=== PATIENT | female | born 1955 | race Caucasian/White ===

== ENCOUNTER 2020-04-07 11:24 | Outpatient (REF) | payer BC, SELFPAY ==
[2020-04-07 13:09] LABS: MANUAL DIFF FLAG NO
[2020-04-07 13:13] LABS: Basophils Percent Auto 0.5 % (0-2); Eosinophils Absolute Auto 0.4 X10*3/uL (0.0-0.4); Eosinophils Percent Auto 5.7 % (0-4); Hematocrit 43.1 % (37-47); Hemoglobin 13.6 g/dl (12.0-16.0); Imm Gran Abs Auto 0.03 X10*3/uL (0.00-0.03); Imm Gran Pct Auto 0.5 % (0.0-0.4); Lymphocytes Absolute Auto 1.6 X10*3/uL (1.2-4.9); Mean Corpuscular HGB Conc 31.6 g/dl (31.0-35.0); Mean Corpuscular Hemoglobin 28.3 pg (27.0-33.0); Mean Corpuscular Volume 89.8 fL (80-98); Mean Platelet Volume 11.4 fL (9.4-12.3); Monocytes Absolute Auto 0.6 X10*3/uL (0.1-1.2); Monocytes Percent Auto 8.9 % (2-11); Neutrophils Absolute Auto 3.9 X10*3/uL (2.0-8.3); Neutrophils Percent Auto 59.4 % (45-73); Platelet Count 252 X10*3/uL (160-400); Red Cell Distribution Width 13.7 % (11.0-16.0); White Blood Count 6.5 X10*3/uL (4.8-10.8)
[2020-04-07 13:46] LABS: Alanine Aminotransferase 35 U/L (0-31); Albumin Level 4.4 g/dL (3.5-5.0); Alkaline Phosphatase 55 U/L (39-117); Anion Gap 13 (12-20); Aspartate Amino Transferase 24 U/L (5-31); Bilirubin Total 0.3 mg/dL (0.0-1.0); Blood Urea Nitrogen 18 mg/dL (9-16); Calcium 9.4 mg/dL (8.4-10.2); Carbon Dioxide 26 mmol/L (22-29); Chloride 103 mmol/L (96-108); Cholesterol 222 mg/dL; Estimated Glomerular Filt Rate > 60; Glucose Fasting 108 mg/dL (60-99); HDL Cholesterol 64 mg/dL; LDL Cholesterol Calculated 137 mg/dl; Potassium 4.3 mmol/l (3.3-5.1); Sodium 138 mmol/L (135-145); Total Protein 6.8 g/dL (6.5-8.0); Triglycerides 106 mg/dL
[2020-04-07 13:57] LABS: Thyroid Stimulating Hormone 1.34 uIU/mL (0.32-4.0); Vitamin D 25-OH Total 12.1 ng/mL (>30)
== END 2020-04-07 11:25 | disposition home or self-care (01) ==
LOC: HO.10HDL 11:24
PROVIDERS: PCP Internal Medicine; Visit Provider Internal Medicine
DX: I10 Essential (primary) hypertension (principal); E78.00 Pure hypercholesterolemia, unspecified; R63.5 Abnormal weight gain; M19.90 Unspecified osteoarthritis, unspecified site
CPT/HCPCS: 36415; 80053; 80061; 82306; 84443; 85025

== ENCOUNTER 2020-07-29 07:11 | Outpatient (REF) | payer BC, SELFPAY ==
[2020-07-29 08:31] LABS: Cholesterol 237 mg/dL; HDL Cholesterol 56 mg/dL; LDL Cholesterol Calculated 140 mg/dl; Triglycerides 207 mg/dL
== END 2020-07-29 07:12 | disposition home or self-care (01) ==
LOC: HO.LAB 07:11
PROVIDERS: PCP Internal Medicine; Visit Provider Internal Medicine
DX: E78.00 Pure hypercholesterolemia, unspecified (principal)
CPT/HCPCS: 36415; 80061

== ENCOUNTER 2021-11-24 09:13 | Outpatient (REF) | payer BC, SELFPAY | END 2021-11-24 09:14 | disposition home or self-care (01) | LOC: HO.HOSX 09:13 | PROVIDERS: Visit Provider Orthopaedic Surgery | DX: Z13.89 Encounter for screening for other disorder (principal) ==

== ENCOUNTER 2023-05-29 07:41 | Outpatient (REF) | payer MEDICARE, SELFPAY ==
[2023-05-29 07:53] LABS: MANUAL DIFF FLAG NO
[2023-05-29 08:45] LABS: Basophils Percent Auto 0.3 % (0-2); Eosinophils Absolute Auto 0.2 X10*3/uL (0.0-0.4); Eosinophils Percent Auto 1.5 % (0-4); Hematocrit 44.9 % (37.0-47.0); Hemoglobin 14.7 g/dl (12.0-16.0); Imm Gran Abs Auto 0.07 X10*3/uL (0.00-0.03); Imm Gran Pct Auto 0.6 % (0.0-0.4); Lymphocytes Absolute Auto 2.6 X10*3/uL (1.2-4.9); Mean Corpuscular HGB Conc 32.7 g/dl (31.0-35.0); Mean Corpuscular Hemoglobin 28.2 pg (27.0-33.0); Mean Platelet Volume 11.1 fL (9.4-12.3); Monocytes Absolute Auto 1.1 X10*3/uL (0.1-1.2); Monocytes Percent Auto 9.6 % (2-11); Neutrophils Absolute Auto 7.7 x10*3/uL (2.0-8.3); Platelet Count 338 X10*3/uL (160-400); Red Blood Count 5.22 X10*6/uL (4.20-5.50); Red Cell Distribution Width 14.1 % (11.0-16.0); White Blood Count 11.6 X10*3/uL (4.8-10.8)
[2023-05-29 09:17] LABS: Alanine Aminotransferase 20 U/L (0-31); Alkaline Phosphatase 56 U/L (39-117); Anion Gap 11 (12-20); Aspartate Amino Transferase 15 U/L (5-31); Bilirubin Total 0.8 mg/dL (0.0-1.0); Blood Urea Nitrogen 18 mg/dL (9-16); Calcium 9.6 mg/dL (8.4-10.2); Carbon Dioxide 32 mmol/L (22-29); Chloride 105 mmol/L (96-108); Cholesterol 190 mg/dL (<200); Estimated Glomerular Filt Rate > 60; Glucose Fasting 101 mg/dL (60-99); HDL Cholesterol 71 mg/dL (>40); LDL Cholesterol Calculated 103 mg/dL (<100); Potassium 4.6 mmol/L (3.3-5.1); Sodium 143 mmol/L (135-145); Total Protein 6.6 g/dL (6.5-8.0); Triglycerides 81 mg/dL (<150)
== END 2023-05-29 07:42 | disposition home or self-care (01) ==
LOC: HO.LAB 07:41
PROVIDERS: PCP Internal Medicine; Visit Provider Internal Medicine
DX: I10 Essential (primary) hypertension (principal); E78.00 Pure hypercholesterolemia, unspecified; M19.90 Unspecified osteoarthritis, unspecified site
CPT/HCPCS: 36415; 80053; 80061; 85025

== ENCOUNTER 2023-07-23 10:57 | Outpatient (REF) | payer MEDICARE, SELFPAY ==
--- NOTE | ~2023-07-23 | MM_ITS ---
EXAMINATION: BONE DENSITOMETRY CLINICAL INDICATION: Menopause. COMPARISON: This is the patient's baseline examination. TECHNIQUE: Using a [employer] DXA System (software version: 13.1) manufactured by [employer], dual-energy x-ray absorptiometry was performed of the lumbar spine and left hip. The images are of good technical quality. Summary results are attached. FINDINGS: LEFT FEMUR, NECK: BMD 0.801 g/cm2, Z-score -0.8, T-score -1.7, osteopenia. LEFT FEMUR, TOTAL: BMD 0.927 g/cm2, Z-score 0.0, T-score -0.6, normal. AP SPINE L1-L4: BMD 0.992 g/cm2, Z-score -1.1, T-score -1.6, osteopenia. IDENTIFIED RISK FACTORS: Menopause, height loss, Thiazide. HISTORY OF FRACTURE: None listed. MEDICATIONS: None listed. MM/XR DEXA axial skeleton IMPRESSION: 1. DIAGNOSIS: Osteopenia based on the lowest T-score value of -1.7 in the femoral neck applying World Health Organization criteria. 2. 10-YEAR FRACTURE RISK PREDICTION, FRAX: Major osteoporotic fracture (clinical spine, forearm, hip or shoulder) 9.3%. Hip fracture 1.4%. 3. Treatment Recommendations: NOF guidelines recommend consideration for treatment in postmenopausal women and men age 50 and older presenting with the following: -A hip or vertebral (clinical or morphometric) fracture. -T-score less than or equal to -2.5 at the femoral neck or spine after appropriate evaluation to exclude secondary causes. -Low bone mass at the hip or spine and a 10-year fracture probability by FRAX of greater than or equal to 3% for hip fracture or greater than or equal to 20% for major osteoporotic fracture based on the [place] adapted WHO algorithm. 4. Other Recommendations: All treatment decisions require clinical judgment and consideration of individual patient factors, including patient preferences, comorbidities, previous drug use, risk factors not captured in the FRAX model (e.g. frailty, falls, vitamin D deficiency, increased bone turnover, interval significant decline in bone density) and possible under or overestimation of fracture risk by FRAX. Additional medical evaluation for secondary cause of low bone mineral density may be appropriate. FUTURE SCAN RECOMMENDATION: People with diagnosed cases of osteoporosis or at high risk for fracture should have regular bone mineral density tests. For patients eligible for Medicare, routine testing is allowed once every 2 years. The testing frequency can be increased to one year for patients who have rapidly progressing disease, those who are receiving or discontinuing medical therapy to restore bone mass, or have additional risk factors.
== END 2023-07-23 10:58 | disposition home or self-care (01) ==
LOC: HO.MAMMO 10:57
PROVIDERS: PCP Internal Medicine; Visit Provider Internal Medicine
DX: Z13.820 Encounter for screening for osteoporosis (principal); Z78.0 Asymptomatic menopausal state
CPT/HCPCS: 77080

== ENCOUNTER 2023-11-04 10:06 | Outpatient (REF) | payer MEDICARE, SELFPAY ==
[2023-11-04 10:42] LABS: MANUAL DIFF FLAG NO
[2023-11-04 10:47] LABS: Basophils Absolute Auto 0.1 X10*3/uL (0.0-0.2); Basophils Percent Auto 0.5 % (0-2); Eosinophils Absolute Auto 0.1 X10*3/uL (0.0-0.4); Eosinophils Percent Auto 1.3 % (0-4); Hematocrit 43.2 % (37.0-47.0); Hemoglobin 14.3 g/dl (12.0-16.0); Imm Gran Abs Auto 0.09 X10*3/uL (0.00-0.03); Imm Gran Pct Auto 0.9 % (0.0-0.4); Lymphocytes Absolute Auto 2.2 X10*3/uL (1.2-4.9); Lymphocytes Percent Auto 22.7 % (20-40); Mean Corpuscular HGB Conc 33.1 g/dl (31.0-35.0); Mean Corpuscular Hemoglobin 29.1 pg (27.0-33.0); Mean Corpuscular Volume 87.8 fL (80.0-98.0); Mean Platelet Volume 10.6 fL (9.4-12.3); Monocytes Absolute Auto 0.8 X10*3/uL (0.1-1.2); Monocytes Percent Auto 8.1 % (2-11); Neutrophils Absolute Auto 6.5 x10*3/uL (2.0-8.3); Neutrophils Percent Auto 66.5 % (45-73); Platelet Count 323 X10*3/uL (160-400); Red Blood Count 4.92 X10*6/uL (4.20-5.50); Red Cell Distribution Width 14.2 % (11.0-16.0); White Blood Count 9.8 X10*3/uL (4.8-10.8)
[2023-11-04 11:11] LABS: Anion Gap 11 (12-20); Blood Urea Nitrogen 18 mg/dL (9-16); Carbon Dioxide 31 mmol/L (22-29); Chloride 103 mmol/L (96-108); Estimated Glomerular Filt Rate > 60; Glucose Random 110 mg/dL (60-115); Potassium 4.7 mmol/L (3.3-5.1); Sodium 140 mmol/L (135-145)
== END 2023-11-04 10:07 | disposition home or self-care (01) ==
LOC: HO.10HDL 10:06
PROVIDERS: Visit Provider Internal Medicine
DX: I10 Essential (primary) hypertension (principal); E78.00 Pure hypercholesterolemia, unspecified
CPT/HCPCS: 36415; 80048; 85025

== ENCOUNTER 2024-02-18 15:07 | Outpatient (RCR) | payer MEDICARE, SELFPAY ==
--- NOTE | 2024-01-16 17:36 | MHC.PT.EP ---
[facility] [place] Office [place] Office [place] Office [address] Jonatan Stephens [address] [phone] F: [phone] F: [phone] F: [phone] F: [phone] Physical Therapy Plan of Care Date of Evaluation: 01/13/24 Date of Surgery: Diagnosis: Left lower quadrant pain, LBP, L lower buttock pain. Assessment: Pt is a 68 y/o female referred to PT for eval and treat of Left lower quadrant pain, LBP, left lower buttock pain which is resulting in decreased tolerance for sitting for duration, performing heavier HH chores, walking for long duration, as well participating in jac fitness activities secondary to increased lumbar and LE tissue tension, decreased trunk ROM, decreased hip and core strength and pain. Pt is deemed an appropriate candidate to receive skilled PT services to address their physical impairments in order to improve their functional ability. Frequency and Duration: The patient will be seen 1 x / wk x 5 wks. Short Term Goals: initiate home program. Improve baseline pain to < 5/10; initial 6-8/10. Mcc Goals: I with home program Pt will improve LEFI outcome measure by at least 9 points. Pt will walk a mile with at most a little bit of difficulty; initial quite a bit of difficulty. Pt will report able to sit > 1 hour with managed Sx. Treatment Plan: Modalities to reduce pain, spasms and effusion. Manual therapy to restore motion and function. Therapeutic exercise to improve strength and flexibility. Neuromuscular re-education for posture and balance. Therapeutic activities to return to functional activities of daily living. Electronically signed by: Valerio Ambrocio PT. Please sign and return to therapist. Thank you for your referral.
== END 2024-05-29 08:32 | disposition home or self-care (01) ==
LOC: HO.PT 15:07
PROVIDERS: PCP Internal Medicine; Visit Provider Internal Medicine
DX: R10.32 Left lower quadrant pain (principal); M54.50 Low back pain, unspecified
CPT/HCPCS: 97110; 97161

== ENCOUNTER 2024-07-30 14:32 | Outpatient (REF) | payer MEDICARE, SELFPAY ==
--- NOTE | ~2024-07-30 | XR_ITS ---
EXAMINATION: XR CHEST CLINICAL INFORMATION: J06.9 - Acute upper respiratory infection, unspecified COMPARISON: 05/22/2010 TECHNIQUE: 2 views of the chest were obtained. FINDINGS: The cardiac, hilar, and mediastinal contours are normal. Aortic mural calcification. Lungs are mildly hyperaerated bilaterally. Lingular consolidation best appreciated on the lateral projection. In the right base, there is a 1.4 cm probably calcified nodule, not present in 2011. Given density, this is likely a calcified granuloma. Lungs otherwise clear. There is no pneumothorax or pleural effusion. There is no focal osseous or soft tissue abnormality. Degenerative changes throughout the spine. XR/XR chest 2V IMPRESSION: 1. COPD. Lingular consolidation suspicious for pneumonia. 2. Nodule in the right lung base, probably calcified granuloma. CT exam recommended for confirmation. Electronically signed by: Alan Desouza MD 07/30/2024 04:09 PM EDT
[2024-07-31 11:04] LABS: Influenza A PCR NEGATIVE (Negative); Influenza B PCR NEGATIVE (Negative); Resp Syncy Virus RNA Qual PCR NEGATIVE (Negative); SARS COV2 PCR INHOUSE NEGATIVE (Negative)
== END 2024-07-30 14:33 | disposition home or self-care (01) ==
LOC: HO.HMGCX 14:32
PROVIDERS: PCP Internal Medicine; Visit Provider Nurse Practitioner Family
DX: J06.9 Acute upper respiratory infection, unspecified (principal); R05.2 Subacute cough
CPT/HCPCS: 0241U; 71046; 99212

== ENCOUNTER 2024-07-30 14:32 | Outpatient (AMB) | payer MEDICARE, SELFPAY ==
--- NOTE | 2024-07-30 14:49 | AM.OFFWIN_ITS ---
Intake Vital Signs 07/30/24 14:56 Weight 224 lb 4 oz BP 126/80 Blood Pressure Location Lt brachial Position Sitting Pulse 80 Pulse Source Pulse Oximeter Temp 97.6 F Temp Source Oral Pulse Oximetry (%) 97 Oxygen Delivery Method Room Air Intake Visit Reasons: EP-cough, chest congestion, tiredness, body ache Intake Note: Patient here for headache,cough, fatigue and congestion that has been present for over 2 weeks. Patient Tobacco Use Status: Never used Tobacco Contracts Advisor Required: No Allergies No Known Allergies [No Known Allergies*] Allergy (Unverified 07/30/24 14:58) HPI HPI Comments History of Present Illness Details 68 y/o Female patient who presents to [facility] walk in clinic with c/o headache,cough, wheezing, fatigue and congestion that has been present for over 2 weeks. [facility] Medical History (Updated 07/30/24 @ 16:41 by Sisi Owen NP) Pneumonia Cough Acute respiratory disease Social History Patient Tobacco Use Status: Never used Tobacco Review of Systems Const All systems reviewed & are unremarkable except as noted in HPI and below Physical Exam Vital Signs: Last Vital Signs Temp 97.6 F 07/30/24 14:56 Pulse 80 07/30/24 14:56 BP 126/80 07/30/24 14:56 Pulse Ox 97 07/30/24 14:56 Oxygen Delivery Method Room Air 07/30/24 14:56 Const General: no acute distress Nutritional Appearance: obese morbidly obese Orientation/consciousness: patient oriented x3 HEENT Head: Yes normocephalic Ears: external ears normal and TM abnormal with fluid behind the TM bilateral General nose exam: Normal external nose present Face and sinus: Yes sinuses nontender Mouth: moist mucous membranes Resp Effort & Inspection: normal respiratory effort, able to speak in complete sentences and Actively coughing Auscultation: no crackles, no rales, rhonchi upper bilaterally and wheezes inspiratory wheezes and scattered wheezes Cardio Rhythm: regular rhythm Heart sounds: S1 normal heart sound present and S2 normal heart sound present Neuro General: patient oriented x3 Psych Speech and movement: Normal speech and movement present Assessment & Plan Assessment & Plan (1) Acute respiratory disease: Code(s): J06.9 - Acute upper respiratory infection, unspecified Plan: Ordered SARs. Ordered Doxy for 10 days. Ordered Chest Xray Ordered Prednisone (2) Cough: Code(s): R05.9 - Cough, unspecified Qualifiers: Cough type: subacute Qualified Code(s): R05.2 - Subacute cough Plan: Ordered SARs. Ordered Doxy for 10 days. Ordered Chest Xray Ordered Prednisone Orders: Orders XR chest 2V Today J06.9 - Acute upper respiratory infection, unspecified SARS-CoV2/FLU/RSV Today J06.9 - Acute upper respiratory infection, unspecified Medications: New doxycycline hyclate 100 mg PO BID 20 caps 0RF 10 days R05.9 - Cough, unspecified prednisone 50 mg PO DAILY 5 tabs 0RF 5 days J06.9 - Acute upper respiratory infection, unspecified, R05.9 - Cough, unspecified benzonatate 200 mg (2 x 100 mg) PO BID 60 caps 0RF J06.9 - Acute upper respiratory infection, unspecified, R05.9 - Cough, unspecified Coding Level of Care Code Est Pt Level 4 (80347) Diagnoses Acute respiratory disease J06.9 Subacute cough R05.2 Cough type: subacute Time Spent (min) 20
[2024-07-30 14:56] VITALS: BP 126/80; PULSE 80; TEMP 36.4; O2SAT 97
== END 2024-07-30 15:44 | disposition home or self-care (01) ==
PROVIDERS: PCP Internal Medicine; Visit Provider Nurse Practitioner Family
DX: J06.9 Acute upper respiratory infection, unspecified (principal); R05.2 Subacute cough

== ENCOUNTER 2024-07-30 15:23 | Outpatient (REF) | payer MEDICARE, SELFPAY | END 2024-07-30 15:24 | disposition home or self-care (01) | LOC: HO.LAB 15:23 | PROVIDERS: Visit Provider Nurse Practitioner Family | DX: Z13.89 Encounter for screening for other disorder (principal) ==

== ENCOUNTER → 2024-07-30 15:26 | Outpatient (BNV) | payer MEDICARE, SELFPAY | PROVIDERS: PCP Internal Medicine; Visit Provider Radiology Diagnostic Radiology | DX: J44.9 Chronic obstructive pulmonary disease, unspecified (principal); R91.1 Solitary pulmonary nodule | CPT/HCPCS: 71046 ==

== ENCOUNTER 2024-08-06 10:08 | Outpatient (AMB) | payer MEDICARE, SELFPAY ==
--- NOTE | 2024-08-06 10:14 | A.OFFPC_ITS ---
Vital Signs 08/06/24 10:16 Height 5 ft 2.4 in Weight 224 lb BMI 40.4 BP 134/80 Respiration 16 Pulse 82 Pulse Source Pulse Oximeter Temp 97.6 F Temp Source Temporal Artery Scan Pulse Oximetry (%) 99 Oxygen Delivery Method Room Air Intake Visit Reasons: Ed F/U Lung Granuloma Harness Rigger Required: No Accompanied by: Self / Same As Patient Allergies No Known Allergies [No Known Allergies*] Allergy (Unverified 08/06/24 10:14) Tobacco use date assessed: 08/06/24 Fall risk assessment: No Falls in past year Last assessed Fall Risk: 08/06/24 Dental Screening Dental Screen Date: 08/06/24 Did you have a dental visit in the last 12 months?: Yes Did you have a dental problem in the last 6 months where you did not have access to dental care?: No Was dental information given to patient?: Patient has dentist HPI HPI Comments History of Present Illness Details 68 y/o Female patient with past medical history of htn, hld, right breast cancer presenting for follow up. Last saw pcp Mar. CV: On triamterene/hctz, atorvastatin. BP controlled. No chest pain, LE edema. She would like medication for weight loss. She tries to walk and eats a limited calorie diet but has not been able to lose any weight Seen 07/31/24 for headache,cough, wheezing, fatigue and congestion that has been present for over 2 weeks. Her chest xray 1. COPD. Lingular consolidation suspicious for pneumonia.2. Nodule in the right lung base, probably calcified granuloma. CT exam recommended for confirmation. CT chest was ordered Heme/Onc: History of breast cancer. Gets annual breast exam. Mammo is up to date. MSK: Sciatica. 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 NAD EYES: EOMI. Anicteric. HENT: Moist mucous membranes. No scleral icterus. No cervical lymphadenopathy. LUNGS: Clear to auscultation bilaterally. CARDIOVASCULAR: Regular rate and rhythm. No murmur. No JVD. ABDOMEN: Soft, non-tender +bs EXTREMITIES: No edema. Non-tender. SKIN: No rashes or lesions. Warm. NEUROLOGIC: No focal neurological deficits. CN II-XII grossly intact PSYCHIATRIC: Cooperative. Appropriate mood and affect [facility] Medical History Pneumonia Cough Acute respiratory disease Surgical History History of colonoscopy (~05/29/16) Family History Father No problems noted. 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 1. Little interest or pleasure in doing things: not at all 2. Feeling down, depressed, or hopeless: not at all 3. Trouble falling or staying asleep, or sleeping too much: not at all 4. Feeling tired or having little energy: not at all 5. Poor appetite or overeating: not at all 6. Feeling bad about yourself - or that you are a failure or have let yourself or your family down: not at all 7. Trouble concentrating on things, such as reading the newspaper or watching television: not at all 8. Moving or speaking so slowly that other people could have noticed. Or the opposite - being so fidgety or restless that you have been moving around a lot more than usual: not at all 9. Thoughts that you would be better off or of hurting yourself in some way: not at all Total score: 0 Depression Screening Interpretation: Negative Depression Screening Done: Yes 92459 - PHQ-9 Billing: Yes Source: Developed by Drs. Lenny Dalton, Crystal Barrios, Truong Noe and colleagues, with an educational pepper from [employer]. Thrive Questionnaire Date Thrive assessed: 08/06/24 I am a: Patient What is your living situation today?: I have a steady place to live Within the past 12 months, did the food you bought not last and you didn't have the money to get more?: Never true Within the past 12 months, did you worry whether your food would run out before you got money to buy more?: Never true Do you have trouble paying for medicines?: No Do you have trouble getting transportation to medical appointments?: No Do you have trouble paying your heating and electricity bill?: No Do you have trouble taking care of your child, family member or friend?: No Do you have trouble with day-to-day activities such as bathing, preparing meals, shopping, managing finances, etc.?: No Are you currently unemployed and looking for a job?: No Are you interested in more education?: No Please select the resources that you would like help with: None THRIVE Score: 0 AUDIT C Alcohol Use Questionnaire (AUDIT-C) 1. How often do you have a drink containing alcohol?: Monthly or less 2. How many drinks containing alcohol do you have on a typical day when you are drinking?: 1 or 2 3. How often do you have six or more drinks on one occasion?: Never Total Score: 1 ALEJO-7 AMB Questionnaire ALEJO-7 Date ALEJO - 7 assessed: 08/06/24 Feeling nervous, anxious, or on edge: 0 = Not at all Not being able to stop or control worryin = Not at all Worrying too much about different things: 0 = Not at all Trouble relaxin = Not at all Being so restless that it is hard to sit still: 0 = Not at all Becoming easily annoyed or irritable: 0 = Not at all Feeling afraid as if something awful might happen: 0 = Not at all Total ALEJO-7 score (0-4 normal; 5-9 mild; 10-14 moderate; 15-21 severe): 0 Source: Developed by Drs. Lenny Dalton, Crystal Barrios, Truong Noe and colleagues, with an educational pepper from [employer]. Physical exam (Primary Care) Vital Signs: Last Vital Signs Temp 97.6 F 08/06/24 10:16 Pulse 82 08/06/24 10:16 Resp 16 08/06/24 10:16 BP 134/80 08/06/24 10:16 Pulse Ox 99 08/06/24 10:16 Oxygen Delivery Method Room Air 08/06/24 10:16 BMI result Body Mass Index 40.4 Tobacco/Smoking Status: Tobacco use Status Tobacco use date assessed 08/06/24 08/06/24 10:29 Patient Tobacco Use Status Never used Tobacco 08/06/24 10:29 PHQ-9: PHQ-9 Score PHQ-9: Total score 0 08/06/24 10:29 Depression Screening Interpretation: Negative Thrive Assessment: Date of Thrive Assessment Date Thrive assessed 08/06/24 08/06/24 10:29 Coding Level of Care Code New Pt Level 4 (84323) Complex EM visit Add On G2211 Diagnoses Obesity, Class III, BMI 40-49.9 (morbid obesity) 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 Chronic obstructive pulmonary disease, unspecified COPD type J44.9 COPD type: unspecified COPD Primary hypertension I10 Hypertension type: primary hypertension Hyperlipidemia, unspecified hyperlipidemia type E78.5 Hyperlipidemia type: unspecified Additional Codes PHQ-9 - 85396 - PHQ-9 Billing: Yes ([id number]) Assessment & Plan Assessment & Plan (1) Obesity, Class III, BMI 40-49.9 (morbid obesity): Code(s): E66.813 - Obesity, class 3 Category: Medical (2) 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 - Pulmonary fibrosis, unspecified Category: Medical (3) COPD (chronic obstructive pulmonary disease): Code(s): J44.9 - Chronic obstructive pulmonary disease, unspecified Category: Medical Qualifiers: COPD type: unspecified COPD Qualified Code(s): J44.9 - Chronic obstructive pulmonary disease, unspecified (4) Hypertension: Code(s): I10 - Essential (primary) hypertension Category: Medical Qualifiers: Hypertension type: primary hypertension Qualified Code(s): I10 - Essential (primary) hypertension (5) Hyperlipidemia: Code(s): E78.5 - Hyperlipidemia, unspecified Category: Medical Qualifiers: Hyperlipidemia type: unspecified Qualified Code(s): E78.5 - Hyperlipidemia, unspecified Plan 68 y/o to establish. past medical, surgical, social & family history reviewed Obesity with htn, hld-trial GLP. return in one month for weight check BP is controlled on medication Labs ordered Orders: Orders Complete Blood Count Auto Diff Today J44.9 - Chronic obstructive pulmonary disease, unspecified, J84.10 - Pulmonary fibrosis, unspecified, R93.89 - Abnormal findings on diagnostic imaging of other specified body structures, Z13.0 - Encounter for screening for diseases of the blood and blood-forming organs and certain disorders involving the immune mechanism, Z13.228 - Encounter for screening for other metabolic disorders T Spot TB Today J44.9 - Chronic obstructive pulmonary disease, unspecified, J84.10 - Pulmonary fibrosis, unspecified, R93.89 - Abnormal findings on d iagnostic imaging of other specified body structures, Z13.0 - Encounter for screening for diseases of the blood and blood-forming organs and certain disorders involving the immune mechanism, Z13.228 - Encounter for screening for other metabolic disorders Comprehensive Met. Panel Today J44.9 - Chronic obstructive pulmonary disease, unspecified, J84.10 - Pulmonary fibrosis, unspecified, R93.89 - Abnormal findings on diagnostic imaging of other specified body structures, Z13.0 - Encounter for screening for diseases of the blood and blood-forming organs and certain disorders involving the immune mechanism, Z13.228 - Encounter for screening for other metabolic disorders Lipid Panel Today J44.9 - Chronic obstructive pulmonary disease, unspecified, J84.10 - Pulmonary fibrosis, unspecified, R93.89 - Abnormal findings on diagnostic imaging of other specified body structures, Z13.0 - Encounter for screening for diseases of the blood and blood-forming organs and certain disorders involving the immune mechanism, Z13.228 - Encounter for screening for other metabolic disorders Angiotensin Converting Enzyme Today J44.9 - Chronic obstructive pulmonary disease, unspecified, J84.10 - Pulmonary fibrosis, unspecified, R93.89 - Abnormal findings on diagnostic imaging of other specified body structures, Z13.0 - Encounter for screening for diseases of the blood and blood-forming organs and certain disorders involving the immune mechanism, Z13.228 - Encounter for screening for other metabolic disorders Medications: New atorvastatin 20 mg PO DAILY 90 tabs 3RF Mounjaro (tirzepatide) for 4 weeks 2.5 mg (0.5 mL) subcut QWEEK 2 mL 0RF NS E66.813 - Obesity, class 3
[2024-08-06 10:16] VITALS: BP 134/80; PULSE 82; RESP 16; TEMP 36.4; O2SAT 99; BMI 40.4
== END 2024-08-06 10:52 | disposition home or self-care (01) ==
LOC: HO.HMCHD 10:09
PROVIDERS: PCP Internal Medicine; Visit Provider Internal Medicine
DX: E66.813 Obesity, class 3 (principal); J84.10 Pulmonary fibrosis, unspecified; J44.9 Chronic obstructive pulmonary disease, unspecified; I10 Essential (primary) hypertension; E78.5 Hyperlipidemia, unspecified

== ENCOUNTER → 2024-08-06 10:08 | Outpatient (BNVA) | payer MEDICARE, SELFPAY | PROVIDERS: PCP Internal Medicine; Visit Provider Internal Medicine | DX: E66.813 Obesity, class 3 (principal); Z68.41 Body mass index [BMI] 40.0-44.9, adult; J84.10 Pulmonary fibrosis, unspecified; J44.9 Chronic obstructive pulmonary disease, unspecified; I10 Essential (primary) hypertension; E78.5 Hyperlipidemia, unspecified | CPT/HCPCS: 96127; 99202 ==

== ENCOUNTER 2024-08-17 09:36 | Outpatient (REF) | payer MEDICARE, SELFPAY ==
--- NOTE | ~2024-08-17 | CT_ITS ---
EXAMINATION: CT CHEST WITHOUT IV CONTRAST INDICATION: J98.4 - Other disorders of lung COMPARISON: Correlation is made with PA and lateral views of the chest dated 07/30/2024. TECHNIQUE: Helical CT scan of the chest was performed without intravenous contrast. Coronal and sagittal reformatted images were generated and reviewed. This CT exam was performed with one or more of the following dose reduction techniques: automated exposure control, adjustment of the mA and/or kV according to patient size, use of iterative reconstruction technique. DLP: 189 mGy-cm CHEST: THYROID: There is a 2.3 cm left thyroid nodule. LUNGS: There is a 3 mm nodule at the left lung apex (series 4, image 24). No additional pulmonary nodules are identified. There is linear scarring more inferiorly in the left upper lobe. MEDIASTINUM: There is no mediastinal lymphadenopathy. ANJALI: Evaluation of the hilar regions is limited by lack of intravenous contrast material. CARDIOVASCULATURE: The heart is normal in size. There is no pericardial effusion. The thoracic aorta is normal in caliber. DEGREE OF CORONARY CALCIFICATION: none PLEURA: There is no pleural effusion. No pneumothorax. MAIN AIRWAYS: The mainstem bronchi and proximal branches are patent. AXILLA: There is no axillary lymphadenopathy. BONES AND SOFT TISSUES: There are dystrophic calcifications in the right breast accounting for the appearance of a nodule in the right lower lung zone on prior chest x-ray. There is degenerative disc disease of the spine. UPPER ABDOMEN: The visualized portions of the liver, spleen, and adrenals have an unremarkable unenhanced appearance. CT/CT chest wo IV con IMPRESSION: 1. Dystrophic calcifications in the right breast accounting for the appearance of a nodule in the right lower lung zone on prior chest x-ray. 2. 2.3 cm left thyroid nodule. Correlation with thyroid ultrasound is recommended. 3. Tiny 3 mm left apical pulmonary nodule. Please see Fleischner Society guidelines below. Fleischner Criteria for pulmonary nodule follow-up SOLID NODULES: Low risk patient: <6mm: no follow-up 6-8mm: 6 month follow-up CT >8mm: PET/Biopsy/ 3 month follow-up CT High risk patient: <6mm: 12 month follow-up CT 6-8mm: 6 month follow-up CT >8mm: PET/Biopsy/ 3 month follow-up CT SUB-SOLID/GROUNDGLASS NODULES: All patients: > or = 6mm: 6 month follow-up CT *Please note that in patients in the following categories, the Fleischner criteria do not apply: Immunocompromised, lung cancer screening population, age below 35, and patients with known malignancy Electronically signed by: Lenny Duckworth MD 08/17/2024 10:40 AM EDT
== END 2024-08-17 09:37 | disposition home or self-care (01) ==
LOC: HO.CT 09:36
PROVIDERS: PCP Internal Medicine; Visit Provider Nurse Practitioner Family
DX: J98.4 Other disorders of lung (principal)
CPT/HCPCS: 71250

== ENCOUNTER → 2024-08-17 09:40 | Outpatient (BNV) | payer MEDICARE, SELFPAY | PROVIDERS: PCP Internal Medicine; Visit Provider Radiology Diagnostic Radiology | DX: R92.1 Mammographic calcification found on diagnostic imaging of breast (principal); E04.1 Nontoxic single thyroid nodule; R91.1 Solitary pulmonary nodule | CPT/HCPCS: 71250 ==

== ENCOUNTER 2024-08-26 13:11 | Outpatient (AMB) | payer MEDICARE, SELFPAY ==
--- NOTE | 2024-08-26 13:13 | A.OFFPC_ITS ---
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 She was diagnosed with pneumonia on 07/30 and completed course of antibiotics. XR at that time read as having COPD with lingular consolidation suspicious for pneumonia as well as a nodule in the right lung base. Chest CT ordered for further characterization which was negative for suspicious pulmonary nodules but showed linear scarring in the left upper lobe. Also noted are dystrophic calcifications in the right breast accounting for the appearance of a nodule in the right lower lung seen on prior chest x-ray. Insulin seen is a 2.3 cm left thyroid nodule and there was a tiny 3 mm left apical pulmonary nodule, no follow up indicated per guidelines. She has been concerned about her cxr and ct findings. She reports she has had sob, primarily with exertion x several months. She does report severe pain in her joints, will be undergoing L TKA in november. She has been following with ortho for cortisone injections and has had many throughout the years. She thinks the sob may be related to pain, but is also concerned about this being related to weight. The imaging results raise concern for COPD in the patient. She has no history of smoking personally, but has significant 2nd hand smoke growing up. Has never working in industrial settings exposing her to noxious substances. There has been no wheezing, cough, lightheadedness, or chest pain. No orthopnea or PND. Does endorse snoring. She has been working on weight loss, following a healthy diet and riding an exercise bike. Reports exercise is limited by joint pain. Awaiting authorization on GLP-1 agonist. Has not yet called her insurance company. General: No fevers, malaise, unintentional weight loss HEENT: +PND. No sore throat, nasal congestion, rhinorrhea, sinus pain, ear pain Cardiovascular: No chest pain, palpitations, or leg edema Respiratory: see hpi MSK: see hpi Neuro: No headaches, weakness, paresthesias Skin: No rashes or lesions Exam: Constitutional - Awake and Alert, No apparent distress Eyes - PERRL Cardiovascular - S1S2, RRR, No edema Respiratory - Normal lung expansion, Normal respiratory effort, No respiratory distress, CTA bilaterally Extremities - no calf tenderness bilaterally, no swelling Skin - Warm/Dry Neurological - Alert & oriented x3 Psychological - Appropriate affect [facility] Medical History (Updated 08/26/24 @ 13:48 by BRITTNY Michael) Morbid obesity Thyroid nodule Pneumonia Cough Acute respiratory disease Surgical History (Updated 08/24/24 @ 17:05 by Thania Gaffney) History of colonoscopy (~05/29/16) Family History Father No problems noted. 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 Lenny Dalton, Crystal Barrios, Truong Noe and colleagues, with an educational pepper from [employer]. Physical exam (Primary Care) Vital Signs: Last Vital Signs Temp 97.3 F 08/26/24 13:18 Pulse 79 08/26/24 13:18 Resp 18 08/26/24 13:18 BP 118/84 08/26/24 13:54 Pulse Ox 99 08/26/24 13:18 Oxygen Delivery Method Room Air 08/26/24 13:18 BMI result Body Mass Index 40.0 Tobacco/Smoking Status: Tobacco use Status Tobacco use date assessed 08/06/24 08/26/24 13:14 Patient Tobacco Use Status Never used Tobacco 08/26/24 13:14 Thrive Assessment: Date of Thrive Assessment Date Thrive assessed 08/06/24 08/26/24 13:14 Coding Level of Care Code Est Pt Level 4 (14393) Diagnoses Shortness of breath R06.02 Thyroid nodule E04.1 Morbid obesity E66.01 Snoring R06.83 Assessment & Plan Assessment & Plan (1) Shortness of breath: Code(s): R06.02 - Shortness of breath Category: Medical Plan: CXR and chest CT reviewed. Possibly multifactorial related to severe pain, obesity hypoventilation syndrome, sequela of pneumonia, or possibly COPD noted on imaging. PFT ordered to evaluate for any COPD or other chronic lung disorder cause her symptoms. Weight loss efforts strongly encouraged as below. Discussed the natural course of pneumonia with resolution of symptoms typically in 4-6 weeks but can last longer in some individuals. No indication for inhalers at this time. No indication for echocardiogram at this time. (2) Thyroid nodule: Comment: 2.3 cm left lobe Code(s): E04.1 - Nontoxic single thyroid nodule Category: Medical Plan: U/S thyroid ordered. Will check TSH w/ reflex free T4 (3) Morbid obesity: Code(s): E66.01 - Morbid (severe) obesity due to excess calories Category: Medical Plan: Class III obesity with BMI 40.0. Weight loss efforts strongly encouraged given multiple areas of osteoarthritis with significant joint pain. Advised to contact her insurance company regarding GLP-1 (4) Snoring: Code(s): R06.83 - Snoring Category: Medical Plan: Resulting in daytime fatigue and hypersomnia. Sleep study ordered Plan Follow up [facility] Dr. Sauceda as scheduled. Labs to be completed Orders: Orders Hemoglobin A1c Today E66.01 - Morbid (severe) obesity due to excess calories PFT pulmonary function test Today E66.01 - Morbid (severe) obesity due to excess calories, G47.10 - Hypersomnia, unspecified, R06.02 - Shortness of breath RT home sleep study Today E66.01 - Morbid (severe) obesity due to excess calories, R06.02 - Shortness of breath, R06.83 - Snoring
[2024-08-26 13:18] VITALS: BP 140/72; PULSE 79; RESP 18; TEMP 36.3; O2SAT 99; BMI 40.0
[2024-08-26 13:54] VITALS: BP 118/84
== END 2024-08-26 14:00 | disposition home or self-care (01) ==
LOC: HO.HMCHD 13:11
PROVIDERS: PCP Internal Medicine; Visit Provider Physician Assistant
DX: R06.02 Shortness of breath (principal); E04.1 Nontoxic single thyroid nodule; E66.01 Morbid (severe) obesity due to excess calories; R06.83 Snoring

== ENCOUNTER → 2024-08-26 13:11 | Outpatient (BNVA) | payer MEDICARE, SELFPAY | PROVIDERS: PCP Internal Medicine; Visit Provider Physician Assistant | DX: R06.02 Shortness of breath (principal); R06.83 Snoring; E66.01 Morbid (severe) obesity due to excess calories; E04.1 Nontoxic single thyroid nodule; Z68.41 Body mass index [BMI] 40.0-44.9, adult; Z77.22 Contact with and (suspected) exposure to environmental tobacco smoke (acute) (chronic) | CPT/HCPCS: 99212 ==

== ENCOUNTER 2024-08-27 06:21 | Outpatient (REF) | payer MEDICARE, SELFPAY ==
[2024-08-27 06:41] LABS: MANUAL DIFF FLAG NO
[2024-08-27 07:19] LABS: Basophils Percent Auto 0.2 % (0-2); Eosinophils Absolute Auto 0.2 X10*3/uL (0.0-0.4); Eosinophils Percent Auto 2.1 % (0-4); Hematocrit 42.4 % (37.0-47.0); Hemoglobin 14.2 g/dl (12.0-16.0); Imm Gran Abs Auto 0.03 X10*3/uL (0.00-0.03); Imm Gran Pct Auto 0.4 % (0.0-0.4); Lymphocytes Absolute Auto 1.3 X10*3/uL (1.2-4.9); Mean Corpuscular HGB Conc 33.5 g/dl (31.0-35.0); Mean Corpuscular Hemoglobin 29.2 pg (27.0-33.0); Mean Corpuscular Volume 87.1 fL (80.0-98.0); Monocytes Absolute Auto 0.7 X10*3/uL (0.1-1.2); Monocytes Percent Auto 8.8 % (2-11); Neutrophils Percent Auto 72.5 % (45-73); Platelet Count 250 X10*3/uL (160-400); Red Blood Count 4.87 X10*6/uL (4.20-5.50); Red Cell Distribution Width 14.5 % (11.0-16.0); White Blood Count 8.2 X10*3/uL (4.8-10.8)
[2024-08-27 07:52] LABS: Estimated Average Glucose 123 mg/dL; Hemoglobin A1C 150.3814 umol/L; Hemoglobin A1c % 5.9 % (<6.0)
[2024-08-27 07:53] LABS: Alanine Aminotransferase 25 U/L (0-31); Albumin Level 4.3 g/dL (3.5-5.0); Alkaline Phosphatase 69 U/L (39-117); Anion Gap 14 (12-20); Aspartate Amino Transferase 21 U/L (5-31); Bilirubin Total 0.6 mg/dL (0.0-1.0); Blood Urea Nitrogen 16 mg/dL (9-16); Calcium 9.5 mg/dL (8.4-10.2); Carbon Dioxide 27 mmol/L (22-29); Chloride 107 mmol/L (96-108); Cholesterol 177 mg/dL (<200); Estimated Glomerular Filt Rate > 60; Glucose Random 114 mg/dL (60-115); HDL Cholesterol 71 mg/dL (>40); LDL Cholesterol Calculated 94 mg/dL (<100); Sodium 144 mmol/L (135-145); Total Protein 6.9 g/dL (6.5-8.0); Triglycerides 60 mg/dL (<150)
[2024-08-27 08:06] LABS: TSH reflex Free T4 1.36 uIU/mL (0.32-4.0)
[2024-08-29 21:13] LABS: TS Negative Control Passed; TS Panel A 1; TS Panel B 2; TS Positive Control Passed; TSpotTB Negative (Negative)
[2024-09-01 13:32] LABS: Angiotensin Converting Enzyme 16 U/L (9-67)
== END 2024-08-27 06:22 | disposition home or self-care (01) ==
LOC: HO.LAB 06:21
PROVIDERS: Physician Assistant; PCP Internal Medicine; Visit Provider Internal Medicine
DX: E66.01 Morbid (severe) obesity due to excess calories (principal); R93.89 Abnormal findings on diagnostic imaging of other specified body structures; J44.9 Chronic obstructive pulmonary disease, unspecified; Z13.0 Encounter for screening for diseases of the blood and blood-forming organs and certain disorders involving the immune mechanism; Z13.228 Encounter for screening for other metabolic disorders; J84.10 Pulmonary fibrosis, unspecified; E04.1 Nontoxic single thyroid nodule; Z13.1 Encounter for screening for diabetes mellitus
CPT/HCPCS: 36415; 80053; 80061; 82164; 83036; 84443; 85025; 86481

== ENCOUNTER 2024-09-17 13:25 | Outpatient (AMB) | payer MEDICARE, SELFPAY ==
[2024-09-17 13:47] VITALS: BP 122/70; PULSE 78; TEMP 36.4; O2SAT 99; BMI 38.9
--- NOTE | 2024-09-17 13:47 | A.OFFPC_ITS ---
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 Required: No Accompanied by: Self / Same As Patient Allergies No Known Allergies [No Known Allergies*] Allergy (Verified 09/17/24 13:47) Tobacco use date assessed: 09/17/24 Fall risk assessment: No Falls in past year Last assessed Fall Risk: 09/17/24 Dental Screening Dental Screen Date: 09/17/24 Did you have a dental visit in the last 12 months?: Yes Did you have a dental problem in the last 6 months where you did not have access to dental care?: No HPI HPI Comments History of Present Illness Details 68 y/o Female patient with past medical history of htn, hld, right breast cancer presenting for follow up CV: On triamterene/hctz, atorvastatin. BP controlled. No chest pain, LE edema. She tries to walk and eats a limited calorie diet but has not been able to lose any weight. GLP was ordered at last visit but was not covered by insurance. She has lost weight with dietary changes since last visit. She has a visit with nutrition scheduled. Prolonged cough in July. She has cxr, then CT chest. CXR with some evidence of COPD. Breast calcification, thyroid nodule, small lung nodule. Thyroid US ordered. PFTs ordered. Sleep study ordered. These are scheduled. Shortness of breath has since resolved. Heme/Onc: History of breast cancer. Gets annual breast exam. Mammo is up to date. MSK: Sciatica. Bilateral knees -getting injections. 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 NAD EYES: EOMI. Anicteric. HENT: Moist mucous membranes. No scleral icterus. No cervical lymphadenopathy. LUNGS: Clear to auscultation bilaterally. CARDIOVASCULAR: Regular rate and rhythm. No murmur. No JVD. ABDOMEN: Soft, non-tender +bs EXTREMITIES: No edema. Non-tender. SKIN: No rashes or lesions. Warm. NEUROLOGIC: No focal neurological deficits. CN II-XII grossly intact PSYCHIATRIC: Cooperative. Appropriate mood and affect [facility] Medical History Prediabetes Morbid obesity Thyroid nodule Pneumonia Cough Acute respiratory disease Surgical History History of colonoscopy (~05/29/16) Family History Father No problems noted. 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 1. Little interest or pleasure in doing things: not at all 2. Feeling down, depressed, or hopeless: not at all 3. Trouble falling or staying asleep, or sleeping too much: not at all 4. Feeling tired or having little energy: not at all 5. Poor appetite or overeating: not at all 6. Feeling bad about yourself - or that you are a failure or have let yourself or your family down: not at all 7. Trouble concentrating on things, such as reading the newspaper or watching television: not at all 8. Moving or speaking so slowly that other people could have noticed. Or the opposite - being so fidgety or restless that you have been moving around a lot more than usual: not at all 9. Thoughts that you would be better off or of hurting yourself in some way: not at all Total score: 0 Depression Screening Interpretation: Negative Depression Screening Done: Yes 89198 - PHQ-9 Billing: Yes Source: Developed by Drs. Lenny Dalton, Crystal Barrios, Truong Noe and colleagues, with an educational pepper from [employer] Thrive Questionnaire Date Thrive assessed: 09/17/24 I am a: Patient Within the past 12 months, did the food you bought not last and you didn't have the money to get more?: Never true Within the past 12 months, did you worry whether your food would run out before you got money to buy more?: Never true Do you have trouble paying for medicines?: No Do you have trouble getting transportation to medical appointments?: No Do you have trouble paying your heating and electricity bill?: No Do you have trouble taking care of your child, family member or friend?: No Do you have trouble with day-to-day activities such as bathing, preparing meals, shopping, managing finances, etc.?: No Are you currently unemployed and looking for a job?: No Are you interested in more education?: No THRIVE Score: 0 AUDIT C Alcohol Use Questionnaire (AUDIT-C) 1. How often do you have a drink containing alcohol?: Monthly or less 2. How many drinks containing alcohol do you have on a typical day when you are drinking?: 1 or 2 3. How often do you have six or more drinks on one occasion?: Less than monthly Total Score: 2 ALEJO-7 AMB Questionnaire ALEJO-7 Date ALEJO - 7 assessed: 09/17/24 Feeling nervous, anxious, or on edge: 0 = Not at all Not being able to stop or control worryin = Not at all Worrying too much about different things: 0 = Not at all Trouble relaxin = Not at all Being so restless that it is hard to sit still: 0 = Not at all Becoming easily annoyed or irritable: 0 = Not at all Feeling afraid as if something awful might happen: 0 = Not at all Total ALEJO-7 score (0-4 normal; 5-9 mild; 10-14 moderate; 15-21 severe): 0 Source: Developed by Drs. Lenny Dalton, Crystal Barrios, Truong Noe and colleagues, with an educational pepper from [employer]. Physical exam (Primary Care) Vital Signs: Last Vital Signs Temp 97.5 F 09/17/24 13:47 Pulse 78 09/17/24 13:47 BP 122/70 09/17/24 13:47 Pulse Ox 99 09/17/24 13:47 Oxygen Delivery Method Room Air 09/17/24 13:47 BMI result Body Mass Index 38.9 Tobacco/Smoking Status: Tobacco use Status Tobacco use date assessed 09/17/24 09/17/24 13:48 Patient Tobacco Use Status Never used Tobacco 09/17/24 13:48 e-Cigarette/Vaping Use Never Used 09/17/24 13:48 PHQ-9: PHQ-9 Score PHQ-9: Total score 0 09/19/24 12:01 Depression Screening Interpretation: Negative Thrive Assessment: Date of Thrive Assessment Date Thrive assessed 09/17/24 09/17/24 13:48 Coding Level of Care Code Est Pt Level 4 (77821) Complex EM visit Add On G2211 Diagnoses Prediabetes R73.03 Primary hypertension I10 Hypertension type: primary hypertension Hyperlipidemia, unspecified hyperlipidemia type E78.5 Hyperlipidemia type: unspecified Thyroid nodule E04.1 Obesity, Class III, BMI 40-49.9 (morbid obesity) E66.813 Additional Codes PHQ-9 - 27226 - PHQ-9 Billing: Yes ([id number]) Assessment & Plan Assessment & Plan (1) Prediabetes: Code(s): R73.03 - Prediabetes Category: Medical (2) Hypertension: Code(s): I10 - Essential (primary) hypertension Category: Medical Qualifiers: Hypertension type: primary hypertension Qualified Code(s): I10 - Essential (primary) hypertension (3) Hyperlipidemia: Code(s): E78.5 - Hyperlipidemia, unspecified Category: Medical Qualifiers: Hyperlipidemia type: unspecified Qualified Code(s): E78.5 - Hyperlipidemia, unspecified (4) Thyroid nodule: Comment: 2.3 cm left lobe Code(s): E04.1 - Nontoxic single thyroid nodule Category: Medical (5) Obesity, Class III, BMI 40-49.9 (morbid obesity): Code(s): E66.813 - Obesity, class 3 Category: Medical Plan 68 year old follow up Some interval weight loss. Encouraged continued efforts. She will see nutrition PFTs, thyroid us and sleep study is scheduled HTN-blood pressure well controlled on current medication
== END 2024-09-17 14:36 | disposition home or self-care (01) ==
LOC: HO.HMCHD 13:26
PROVIDERS: PCP Internal Medicine; Visit Provider Internal Medicine
DX: R73.03 Prediabetes (principal); I10 Essential (primary) hypertension; E78.5 Hyperlipidemia, unspecified; E04.1 Nontoxic single thyroid nodule; E66.813 Obesity, class 3

== ENCOUNTER → 2024-09-17 13:25 | Outpatient (BNVA) | payer MEDICARE, SELFPAY | PROVIDERS: PCP Internal Medicine; Visit Provider Internal Medicine | DX: R73.03 Prediabetes (principal); I10 Essential (primary) hypertension; E78.5 Hyperlipidemia, unspecified; E04.1 Nontoxic single thyroid nodule; E66.813 Obesity, class 3; Z68.38 Body mass index [BMI] 38.0-38.9, adult | CPT/HCPCS: 96127; 99212 ==

== ENCOUNTER 2024-09-29 14:20 | Outpatient (REF) | payer MEDICARE, SELFPAY ==
--- NOTE | ~2024-09-29 | US_ITS ---
EXAMINATION: US THYROID HISTORY: E04.1 - Nontoxic single thyroid nodule TECHNIQUE: Real-time grayscale ultrasound imaging was performed and images were reviewed. COMPARISON: Correlation is made with a chest CT dated 08/17/2024. FINDINGS: SIZE: The right thyroid lobe measures 4.5 x 1.2 x 1.8 cm. The left thyroid lobe measures 4.4 x 1.4 x 1.8 cm. The isthmus measures 3 mm. FLOW: Flow to the gland is normal. ECHOGENICITY: The echotexture of the gland is homogeneous. NODULES: Multiple nodules are seen in the thyroid as described below: Nodule #: 1 Location: Midportion of the right thyroid lobe measuring 4 x 2 x 4 mm. Shape: Wider than tall (0 points) Margins: Smooth (0 points) Echotexture: Hypoechoic (2 points) Composition: Solid (2 points) Calcifications: Comet tail (0 points) Total points: 4 TIRADS: TR4: Moderately suspicious. Nodule #: 2 Location: Lower pole of the right thyroid lobe measuring 5 x 3 x 3 mm. Shape: Wider than tall (0 points) Margins: Smooth (0 points) Echotexture: Indeterminate (1 point) Composition: Mixed (1 point) Calcifications: None (0 points) Total points: 2 TIRADS: TR2: Not suspicious Nodule #: 3 Location: Midportion of the left thyroid lobe measuring 6 x 5 x 6 mm. Shape: Wider than tall (0 points) Margins: Smooth (0 points) Echotexture: Indeterminate (1 point) Composition: Mostly solid (2 points) Calcifications: None (0 points) Total points: 3 TIRADS: TR3: Mildly suspicious. Nodule #: 4 Location: Lower pole of the left thyroid lobe measuring 2.6 x 1.8 x 2.4 cm. Shape: Wider than tall (0 points) Margins: Smooth (0 points) Echotexture: Indeterminate (1 point) Composition: Mostly solid (2 points) Calcifications: Punctate calcifications (3 points) Total points: 6 TIRADS: TR4: Moderately suspicious. US/US thyroid IMPRESSION: Moderately suspicious nodule at the lower pole of the left thyroid lobe as described above. According to ACR TI-RADS guidelines below, ultrasound-guided fine-needle aspiration is recommended. ACR TI-RADS Guidelines TR1 (0 points): Benign, No follow-up or biopsy required TR2 (2 points): Not Suspicious, No biopsy or follow up indicated TR3 (3 points): Mildly Suspicious, FNA if >= 2.5 cm, Follow if >= 1.5 cm TR4 (4-6 points): Moderately Suspicious, FNA if >= 1.5 cm, Follow if >= 1.0 cm TR5 (>=7 points): Highly Suspicious, FNA if >= 1.0 cm, Follow if >= 0.5 cm Electronically signed by: Lenny Duckworth MD 09/30/2024 07:10 AM EDT
--- OUTSIDE RECORDS SUMMARY | 2024-09-29 17:30 | XMS_ITS | Patient Health Record ---
Author Organization [facility] Address [address] [place] [address] Care Team Providers Care Denture Finisher Name Role Phone Ehsan Altamirano MD Primary Care Provider Lenny Zapata Unavailable [phone] Allergies Allergen (clinical drug ingredient) Drug/Non Drug Allergy documented on EMR Reaction Allergy Type Onset Date Status plants/mold (uncoded) Unknown Allergy Active Reason For Referral No Information Medications Medication SIG (Take, Route, Frequency, Duration) Notes Start Date End Date Status Anastrozole 1 MG TAKE 1 TABLET BY KUSUM TH DAILY Oral for 60 Active Triamterene-HCTZ 37.5-25 MG TAKE 1 CAPSU LE BY MOUTH ONCE A DAY DIRECTED. Oral for 30 Active Simvastatin 20 MG TAKE 1 TABLET BY KUSUM TH EVERY DAY Oral for 60 Active Meclizine HCl prn Active Problems Problem Type SNOMED Code ICD Code Onset Dates Problem Status W/U Status Risk Notes Problem [id number] Encounter for screening for malignant neoplasm of colon (Z12.11) Active confirmed Problem Screening for malignant neoplasm of rectum (788196340) Encounter for screening for malignant neoplasm of rectum (Z12.12) Active confirmed Problem [id number] Preprocedural examination (Z01.818) Active confirmed Plan Of Treatment Future Test Test Name Order Date COLONOSCOPY 03/07/2016 Insurance Providers Payer Name Payer Address Payer Phone Subscriber Number Group Number Insured Name Patient Relationship to Insured Coverage Start Date Coverage End Date O [employer]UE [employer] PROF[employer]AL CLAIMS [address] [place] [address] [id number] DOMONIQUE REZA Self - patient is the insured Medical (General) History Medical History History ICD Code Screening colonosocpy 006--hyperplastic polyps, diverticulosis, and internal hemorrhoids Hyperlipidemia Denies GA,DM,CVA,Lung disease,renal dise ase Breast cancer--right--lumpectomy--XRT 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
== END 2024-09-29 14:21 | disposition home or self-care (01) ==
LOC: HO.US 14:20
PROVIDERS: PCP Internal Medicine; Visit Provider Physician Assistant
DX: E04.1 Nontoxic single thyroid nodule (principal)
CPT/HCPCS: 76536

== ENCOUNTER → 2024-09-29 14:22 | Outpatient (BNV) | payer MEDICARE, SELFPAY | PROVIDERS: PCP Internal Medicine; Visit Provider Radiology Diagnostic Radiology | DX: E04.1 Nontoxic single thyroid nodule (principal) | CPT/HCPCS: 76536 ==

== ENCOUNTER 2024-10-08 13:24 | Outpatient (AMB) | payer MEDICARE, SELFPAY ==
[2024-10-08 13:31] VITALS: BMI 37.7
--- NOTE | 2024-10-08 13:31 | A.OFFVIS_ITS ---
VS Expanded 10/08/24 13:31 10/08/24 13:58 Height 5 ft 2.5 in 5 ft 3 in Weight 209 lb 10.554 oz 210 lb BMI 37.7 37.2 Intake Visit Reasons: Prediabetes Allergies No Known Allergies (No Known Allergies*) Allergy (Verified 10/13/24 14:01) Nutrition Presentation Details: Pt presents for MNT for pre diabetes/obesity Pt reports working on reducing on sugar/carbs intake , coffee with milk, no sugar added b/L: eggs, or yogurt blueberries or oatmeal with yogurt and blueberries D: salad with shrimp or chicken , blue cheese snack: fruits, nuts, peanut butter, yogurt physical activity: ADL ETOH/SMOKING: ==== food frequency fruits: 0-1/d ve-7/d dairy: 2/d fish: 0-1/wk BS Monitoring Most Recent Diabetes Results: Cholesterol, (<200) 177 mg/dL 08/27/24 HDL Cholesterol, (>40) 71 mg/dL 08/27/24 Triglycerides, (<150) 60 mg/dL 08/27/24 Creatinine, (0.5-1.4) 0.68 mg/dL 10/14/24 BUN, (9-16) 15 mg/dL 10/14/24 Sodium, (135-145) 140 mmol/L 10/14/24 Potassium, (3.3-5.1) 4.9 mmol/L Δ 10/14/24 Chloride, (96-108) 104 mmol/L 10/14/24 Carbon Dioxide, (22-29) 28 mmol/L 10/14/24 Calcium, (8.4-10.2) 9.6 mg/dL 10/14/24 AST, (5-31) 27 U/L 10/14/24 ALT, (0-31) 32 U/L H 10/14/24 Total Protein, (6.5-8.0) 7.1 g/dL 10/14/24 Albumin, (3.5-5.0) 4.5 g/dL 10/14/24 VCK-Wrfaqeq-Xh.Jeor Equation Height: 5 ft 3 in Weight: 210 lb Resting Metabolic Rate: 1446.32 Calculated Activity Level: Sedentary Calories Needed to Maintain Weight: 1735.58 Diagnosis Nutrition problem #1: food nutri know defi As related to (etiology) #1: diagnosis As evidenced by (sign/symptom) #1: knowledge deficit of diet [facility] Medical History (Updated 10/17/24 @ 21:22 by BRITTNY Michael) Prediabetes Morbid obesity Thyroid nodule Pneumonia Cough Acute respiratory disease Surgical History History of colonoscopy (~05/29/16) Family History Father No problems noted. 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 Cognitive needs: No Hearing needs: Yes (left hearing aid) Vision needs: Yes (rx glasses) Assessment & Plan Assessment & Plan (1) Prediabetes: Code(s): R73.03 - Prediabetes Category: Medical Plan: Wt: 95 Kg ( 10/30 ) Est kcal needs as per MSJ: 1700 (40% carb, 30% protein/fat) Est fluid needs as per 25-30 ml/d: 2900 Est prot per day as per 1 g/kg bw: 90-100 Recommend fiber intake : 8-10 g per day and gradually increase to 25-28 g per day for women and 35-38 g for men or as tolerated Recommend sodium intake per day : less than 2300 mg Educated patient on: ( R = reviewed V = verbalizes understanding N/R = needs review N/A = not applicable * Food sources of carbohydrate, adequate serving sizes and its role in various health conditions: R * Differences between complex carbohydrates a simple carbohydrates, role of fiber in diet: R * Lean protein sources of foods: R * Differences between types of fats and role in diet (mono on saturated fat fatty acids, saturated fatty acids, trans fats): R V N/R * Food sources of sodium in salt and healthy modifications for heart health in kidney health: R V R/V * Vitamins and minerals: R V N/R * Healthy plate method concept: R V N/R * Physical activity: Benefits a precaution: R * Hypoglycemia protocol (rule of 15): R V N/R * Dietary prevention of Hyperglycemia: R Patient Instructions: Continue working on balancing meals, choosing whole grain foods reduce total carb to less than 45 g at meal , 3 meals/day following healthy plate method and 0-20 g of carb as snack (2 /day if needed) have water with meals snack , Coding Level of Care Code Nutr Indiv Intake (26166) Diagnoses Prediabetes R73.03 Time Spent (min) 30
--- OUTSIDE RECORDS SUMMARY | 2024-10-08 13:34 | XMS_ITS | Patient Health Record ---
Author Organization [facility] Address [address] [place] [address] Care Team Providers Care Freight Car Cleaner Name Role Phone Ehsan Altamirano MD Primary Care Provider Lenny Zapata Unavailable [phone] Allergies Allergen (clinical drug ingredient) Drug/Non Drug [...] Problem Status W/U Status Risk Notes Problem [id number] Encounter for screening for malignant neoplasm of colon (Z12.11) Active confirmed Problem Screening for malignant neoplasm of rectum (914368988) Encounter for screening for malignant neoplasm of rectum (Z12.12) Active confirmed Problem 13269151 Preprocedural examination (Z01.818) Active confirmed Plan Of Treatment Future Test Test Name Order Date COLONOSCOPY 03/07/2016 Insurance Providers Payer Name Payer Address Payer Phone Subscriber Number Group Number Insured Name Patient Relationship to Insured Coverage Start Date Coverage End Date O BLUE BCBS PROFESSIONAL CLAIMS [address] [place] [address] [id number] DOMONIQUE REZA Self - patient is the insured Medical (General) History Medical History History ICD Code Screening colonosocpy 006--hyperplastic polyps, diverticulosis, and internal hemorrhoids Hyperlipidemia Denies [place],DM,CVA,Lung disease,renal dise ase Breast cancer--right--lumpectomy--XRT 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
[2024-10-22 15:06] VITALS: BMI 37.2
== END 2024-10-08 14:10 | disposition home or self-care (01) ==
LOC: HO.ENCR 13:25
PROVIDERS: PCP Internal Medicine; Visit Provider Dietitian, Registered
DX: R73.03 Prediabetes (principal)

== ENCOUNTER → 2024-10-08 13:24 | Outpatient (BNVA) | payer MEDICARE, SELFPAY | PROVIDERS: PCP Internal Medicine; Visit Provider Dietitian, Registered | DX: R73.03 Prediabetes (principal); E66.9 Obesity, unspecified; Z68.37 Body mass index [BMI] 37.0-37.9, adult | CPT/HCPCS: 97802 ==

== ENCOUNTER → 2024-10-13 13:58 | Outpatient (AMB) | payer MEDICARE, SELFPAY ==
--- NOTE | 2024-10-13 14:01 | MHC.PC.OV ---
Vital Signs 10/13/24 14:03 Height 5 ft 3 in Weight 92.986 kg BMI 36.3 BP 136/78 Blood Pressure Location Lt brachial Position Sitting Respiration 16 Pulse 88 Pulse Source Pulse Oximeter Temp 96.7 F L Temp Source Temporal Artery Scan Pulse Oximetry (%) 98 Oxygen Delivery Method Room Air Intake Visit Reasons: Routine /Bruises Arms Pad Machine Offbearer Required: No Accompanied by: Self / Same As Patient Allergies No Known Allergies (No Known Allergies*) Allergy (Verified 10/13/24 14:01) Tobacco use date assessed: 09/17/24 Dental Screening Dental Screen Date: 09/17/24 HPI HPI Comments History of Present Illness Details 68 year old female with history of htn, osteoarthritis who is morbidly obese with BMI 40 presents to the office for evaluation of a rash on the arms. She reports since being in the sun more often, has developed rash on the forearms bilaterally. No itch or pain. Not on any antiplatelet drugs. No new contacts. Wears sunscreen. No new medications. Concerned about undergoing surgery. No autoimmune conditions, strenuous activity, recent illness, fevers, chills. ROS: General: No fevers, malaise, unintentional weight loss Skin: see hpi Exam: Constitutional - Awake and Alert, No apparent distress Skin - Warm/Dry. Scattered flat purpora of the arms bilaterally, nonblanching. No palpable purpora or bleeding Neurological - Alert & oriented x3 Psychological - Appropriate affect [facility] Medical History (Updated 10/17/24 @ 21:22 by BRITTNY Michael) Prediabetes Morbid obesity Thyroid nodule Pneumonia Cough Acute respiratory disease Surgical History History of colonoscopy (~05/29/16) Family History Father No problems noted. 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 Lenny Dalton, Crystal Barrios, Truong Noe and colleagues, with an educational pepper from [employer]. Physical exam (Primary Care) Vital Signs: Last Vital Signs Temp 96.7 F L 10/13/24 14:03 Pulse 88 10/13/24 14:03 Resp 16 10/13/24 14:03 BP 136/78 10/13/24 14:03 Pulse Ox 98 10/13/24 14:03 Oxygen Delivery Method Room Air 10/13/24 14:03 BMI result Body Mass Index 36.3 Tobacco/Smoking Status: Tobacco use Status Tobacco use date assessed 09/17/24 10/13/24 14:07 Patient Tobacco Use Status Never used Tobacco 10/13/24 14:07 e-Cigarette/Vaping Use Never Used 10/13/24 14:07 Thrive Assessment: Date of Thrive Assessment Date Thrive assessed 09/17/24 10/13/24 14:07 Coding Level of Care Code Est Pt Level 3 (18574) Diagnoses Purpura D69.2 Assessment & Plan Assessment & Plan (1) Purpura: Code(s): D69.2 - Other nonthrombocytopenic purpura Category: Medical Plan: Low suspicion for vasculitis. Suspect this is benign. However, evaluate plt counts, liver function, bleeding times. Reassurance offered. Can refer to derm if she remains concerned. Orders: Orders Basic Metabolic Panel 10/14/24 R23.3 - Spontaneous ecchymoses Prothrombin Time INR 10/14/24 R23.3 - Spontaneous ecchymoses Liver Panel 10/14/24 R23.3 - Spontaneous ecchymoses Complete Blood Count Auto Diff 10/14/24 R23.3 - Spontaneous ecchymoses Partial Thromboplastin Time 10/14/24 R23.3 - Spontaneous ecchymoses
[2024-10-13 14:03] VITALS: BP 136/78; PULSE 88; RESP 16; TEMP 35.9; O2SAT 98; BMI 36.3
--- OUTSIDE RECORDS SUMMARY | 2024-10-13 14:48 | XMS_ITS | Patient Health Record ---
Author Organization [facility] Address [address] [place] [address] Care Team Providers Care Foot Piece Assembler Name Role Phone Ehsan Altamirano MD Primary Care Provider Lenny Zapata Unavailable [phone] Allergies Allergen (clinical drug ingredient) Drug/Non Drug [...] Problem Status W/U Status Risk Notes Problem [id number] Encounter for screening for malignant neoplasm of colon (Z12.11) Active confirmed Problem Screening for malignant neoplasm of rectum (175069205) Encounter for screening for malignant neoplasm of rectum (Z12.12) Active confirmed Problem 37939396 Preprocedural examination (Z01.818) Active confirmed Plan Of Treatment Future Test Test Name Order Date COLONOSCOPY 03/07/2016 Insurance Providers Payer Name Payer Address Payer Phone Subscriber Number Group Number Insured Name Patient Relationship to Insured Coverage Start Date Coverage End Date O BLUE [employer] PROFESSIONAL CLAIMS [address] [place] [address] [phone] [id number] 500 DOMONIQUE REZA Self - patient is the insured Medical (General) History Medical History History ICD Code Screening colonosocpy 006--hyperplastic polyps, diverticulosis, and internal hemorrhoids Hyperlipidemia Denies [place],DM,CVA,Lung disease,renal dise ase Breast cancer--right--lumpectomy--XRT 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
== END ==
LOC: HO.HMCHD 13:59
PROVIDERS: PCP Internal Medicine; Visit Provider Physician Assistant
DX: D69.2 Other nonthrombocytopenic purpura (principal)

== ENCOUNTER → 2024-10-13 13:58 | Outpatient (BNVA) | payer MEDICARE, SELFPAY | PROVIDERS: PCP Internal Medicine; Visit Provider Physician Assistant | DX: D69.2 Other nonthrombocytopenic purpura (principal); I10 Essential (primary) hypertension; E66.01 Morbid (severe) obesity due to excess calories; Z68.36 Body mass index [BMI] 36.0-36.9, adult | CPT/HCPCS: 99212 ==

== ENCOUNTER 2024-10-14 11:08 | Outpatient (REF) | payer MEDICARE, SELFPAY ==
[2024-10-14 11:25] LABS: MANUAL DIFF FLAG NO
[2024-10-14 11:41] LABS: Hematocrit 44.2 % (37.0-47.0); Hemoglobin 14.6 g/dl (12.0-16.0); Imm Gran Abs Auto 0.04 X10*3/uL (0.00-0.03); Imm Gran Pct Auto 0.6 % (0.0-0.4); Lymphocytes Absolute Auto 1.8 X10*3/uL (1.2-4.9); Mean Corpuscular HGB Conc 33.0 g/dl (31.0-35.0); Mean Corpuscular Hemoglobin 29.1 pg (27.0-33.0); Mean Corpuscular Volume 88.0 fL (80.0-98.0); NRBC Abs Auto 0.000 X10*3/uL (0.0-0.012); NRBC Pct Auto 0.0 /100WBC (0.0-0.2); Platelet Count 285 X10*3/uL (160-400); Red Blood Count 5.02 X10*6/uL (4.20-5.50); White Blood Count 7.0 X10*3/uL (4.8-10.8)
[2024-10-14 11:47] LABS: INTERNATIONAL NORM RATIO 0.9 (0.9-1.1); Prothrombin Time 10.5 SEC (10.9-12.4)
[2024-10-14 11:50] LABS: Partial Thromboplastin Time 30.8 SEC (26.0-36.8)
[2024-10-14 12:10] LABS: Alanine Aminotransferase 32 U/L (0-31); Albumin Level 4.5 g/dL (3.5-5.0); Alkaline Phosphatase 61 U/L (39-117); Anion Gap 13 (12-20); Aspartate Amino Transferase 27 U/L (5-31); Blood Urea Nitrogen 15 mg/dL (9-16); Calcium 9.6 mg/dL (8.4-10.2); Carbon Dioxide 28 mmol/L (22-29); Chloride 104 mmol/L (96-108); Estimated Glomerular Filt Rate > 60; Potassium 4.9 mmol/L (3.3-5.1); Sodium 140 mmol/L (135-145); Total Protein 7.1 g/dL (6.5-8.0)
--- OUTSIDE RECORDS SUMMARY | 2024-10-14 12:27 | XMS_ITS | Patient Health Record ---
Author Organization [facility] Address [address] [place] [address] Care Team Providers Care Rear Admiral Name Role Phone Ehsan Altamirano MD Primary Care Provider Lenny Zapata Unavailable [phone] Allergies Allergen (clinical drug ingredient) Drug/Non Drug [...] Problem Status W/U Status Risk Notes Problem [id number] Encounter for screening for malignant neoplasm of colon (Z12.11) Active confirmed Problem Screening for malignant neoplasm of rectum (011381114) Encounter for screening for malignant neoplasm of rectum (Z12.12) Active confirmed Problem 99560602 Preprocedural examination (Z01.818) Active confirmed Plan Of Treatment Future Test Test Name Order Date COLONOSCOPY 03/07/2016 Insurance Providers Payer Name Payer Address Payer Phone Subscriber Number Group Number Insured Name Patient Relationship to Insured Coverage Start Date Coverage End Date O BLUE [employer] PROFESSIONAL CLAIMS [address] [place] [address] [id number] 500 DOMONIQUE REZA Self - patient is the insured Medical (General) History Medical History History ICD Code Screening colonosocpy 11--2 006--hyperplastic polyps, diverticulosis, and internal hemorrhoids Hyperlipidemia Denies [place],DM,CVA,Lung disease,renal dise ase Breast cancer--right--lumpectomy--XRT 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
== END 2024-10-14 11:09 | disposition home or self-care (01) ==
LOC: HO.LAB 11:08
PROVIDERS: PCP Physician Assistant; Visit Provider Physician Assistant
DX: R23.3 Spontaneous ecchymoses (principal)
CPT/HCPCS: 36415; 80048; 80076; 85025; 85610; 85730

== ENCOUNTER 2024-12-05 09:21 | Outpatient (REF) | payer MEDICARE, SELFPAY ==
--- OUTSIDE RECORDS SUMMARY | 2024-11-29 23:59 | XMS_ITS | Continuity of Care Document ---
Author Organization [facility] Address [address] [place] [address]- Care Team Providers Care Basin Operator Name Role Phone Martha CORRIGAN, Nati William [id number]): [facility]/30/24 - 11/29/24 [facility] [address] [place] [address]- Attending Physician: Crow Winters8 Admitting Physician: AdmtrChristopher Referring Physician: Admtr, Ar8 Encounter Type: Triage Allergies, Adverse Reactions, Alerts Substance Criticality Severity Reaction Reaction Severity Status Other Environmental Allergy Active Medications acetaminophen 325 mg oral tablet 650 mg, By Mouth, Every 6 hours, Refills 0, Maintenance, 11/14/24 7:42:00 AM EDT, Partial fill upon patient request if the prescription is for a schedule II opioid drug. Start Date: 11/14/24 Status: Ordered Repeat number: 1 atorvastatin 20 mg oral tablet = 20 mg, By Mouth, Daily at bedtime, 0 Refills, Maintenance, 11/14/24 7:42:00 AM EDT, Tablet, Partialfill upon patient request if the prescription is for a schedule II opioid drug. Start Date: 11/14/24 Status: Ordered Repeat number: 1 celecoxib 200 mg oral capsule = 200 mg, By Mouth, Daily, 0 Refills, Maintenance, 11/14/24 7:42:00 AM EDT, Capsule, Partial fill upon patient request if the prescription is for a schedule II opioid drug. Start Date: 11/14/24 Status: Ordered Repeat number: 1 docusate sodium 100 mg oral capsule 100 mg, 1, capsule, By Mouth, 2 times a day, # 60 capsule, Refills 0, Tot. Refills 0, Maintenance, 11/14/24 7:40:00 AM EDT, Route to Pharmacy Electronically, [facility], Partial fill uponpatient request if the prescription is for a schedule II opioid drug., 160.5, cm, 11/14/24 7:35:00 EDT, Height, 91, kg, 11/13/24 11:03:00 EDT, Dry Weight Start Date: 11/14/24 Status: Ordered Quantity: 60.0 Unit: capsule Repeat number: 1 Ecotrin 325 mg oral delayed release tablet 1 tablet = 325 mg, By Mouth, 2 times a day, # 60 tablet, 0 Refills, Maintenance, 11/14/24 7:40:00 AM EDT, EC Tablet, [facility] 3, Partial fill upon patient request if the prescription is for a schedule II opioid drug., 160.5, cm, 11/14/24 7:35:00 EDT, Height, 91, kg, 11/13/24 11:03:00 EDT, Dry Weight Start Date: 11/14/24 Stop Date: 12/14/24 Status: Ordered Quantity: 60.0 Unit: tablet Repeat number: 1 hydrochlorothiazide-triamterene 25 mg-37.5 mg oral capsule TAKE 1 CAPSULE BY MOUTH EVERY DAY Start Date: 10/30/24 Status: Ordered Repeat number: 1 MiraLax Powder 1 pack/packet = 17 Gm, By Mouth, Daily, PRN Constipation, 0 Refills, Maintenance, 11/14/24 7:42:00 AMEDT, Powder, Partial fill upon patient request if the prescription is for a schedule II opioid drug. Start Date: 11/14/24 Status: Ordered Repeat number: 1 pantoprazole 40 mg oral delayed release tablet = 40 mg, By Mouth, Daily, # 30 tablet, 0 Refills, Maintenance, 11/14/24 7:40:00 AM EDT, EC Tablet, 160.5, cm, 11/14/24 7:35:00 EDT, Height, 91, kg, 11/13/24 11:03:00 EDT, Dry Weight Start Date: 11/14/24 Stop Date: 12/14/24 Status: Ordered Quantity: 30.0 Unit: tablet Repeat number: 1 senna 187 mg oral tablet 1 tablet = 8.6 mg, By Mouth, Daily at bedtime, PRN as needed for constipation, 0 Refills, Maintenance, 11/14/24 7:42:00 AM EDT, Tablet, Partial fill upon patient request if the prescription is for a schedule II opioid drug. Start Date: 11/14/24 Status: Ordered Repeat number: 1 Problem List Condition Confirmation Course Effective Dates Status Health St atus Informant Breast cancer, pT1c pN0 right breast cancer, hormone receptor positive, HER-2/barney negative. 2011 Confirmed 12/25/11 Active Obese class II Confirmed Active Social History Social History Type Response Smoking Status Never smoker entered on: 10/05/14 Sex Sex Representation Female (finding) Patient Care team information Care Team Personnel Name: Kimberly Esquivel RN Position: S RN Member Role: Primary Care Nurse Name: Nisha Gong RN Position: S RN Member Role: Primary Care Nurse Name: Nati Thomas MD Position: Reference Physician Member Role: PCP Address: [address] [place] [address] Telecom: Care Team Related Persons Name: GRIFFIN REZA Name: RAMO REZA Insurance Providers Guarantor name: DOMONIQUE REZA Health Plan Information #: 1 Payer: MEDICARE B Payer Identifier: KARL Member Number: [id number] Group Number: [id number] Subscriber Identifier: [id number] Relationship to Subscriber: self Coverage Type: NA Coverage Verification Date: NA Telecom: Address: Health Plan Information #: 2 Payer: MEDEX SECONDARY ONLY Payer Identifier: KARL Member Number: [id number] Group Number: [id number] Subscriber Identifier: [id number] Relationship to Subscriber: self Coverage Type: Medicare Other Coverage Verification Date: Telecom: Address:
--- OUTSIDE RECORDS SUMMARY | 2024-12-05 09:25 | XMS_ITS | Patient Health Record ---
Author Organization [facility] Address [address] [place] [address] Care Team Providers Care Accountant Bookkeeper Name Role Phone Evelia (RETIRED) Ehsan CORRIGAN Primary Care Provide Lenny Limon Unavailable [phone] Allergies Allergen (clinical drug ingredient) Drug/Non Drug [...] Problem Status W/U Status Risk Notes Problem [id number] Encounter for screening for malignant neoplasm of colon (Z12.11) Active confirmed Problem Screening for malignant neoplasm of rectum (658460675) Encounter for screening for malignant neoplasm of rectum (Z12.12) Active confirmed Problem 16890268 Preprocedural examination (Z01.818) Active confirmed Plan Of Treatment Future Test Test Name Order Date COLONOSCOPY 03/07/2016 Insurance Providers Payer Name Payer Address Payer Phone Subscriber Number Group Number Insured Name Patient Relationship to Insured Coverage Start Date Coverage End Date O BLUE BCBS PROFESSIONAL CLAIMS [address] [place] [address] [id number] 500 DOMONIQUE REZA Self - patient is the insured Medical (General) History Medical History History ICD Code Screening colonosocpy 11-1-2 006--hyperplastic polyps, diverticulosis, and internal hemorrhoids Hyperlipidemia Denies [place],DM,CVA,Lung disease,renal dise ase Breast cancer--right--lumpectomy--XRT 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
[2024-12-05 13:58] LABS: Appearance Urine Clear; Glucose Urine UA Negative (Negative); PH 5.5 (5.0-9.0); Specific Gravity - Urine 1.010 (1.005-1.025); UMIC TRIGGER UACC YES
[2024-12-05 14:08] LABS: UACC Culture Trigger YES
== END 2024-12-05 09:22 | disposition home or self-care (01) ==
LOC: HO.HMGCLDS 09:21
PROVIDERS: PCP Internal Medicine; Visit Provider Physician Assistant
DX: R30.0 Dysuria (principal)
CPT/HCPCS: 81001; 87086

== ENCOUNTER 2024-12-18 09:53 | Outpatient (AMB) | payer MEDICARE, SELFPAY ==
--- NOTE | 2024-12-18 09:56 | A.OFFPC_ITS ---
Vital Signs 12/18/24 10:01 12/18/24 10:18 Height 5 ft 2.5 in Weight 88.451 kg BMI 35.1 BP 150/70 H 136/72 Pulse 71 Pulse Source Pulse Oximeter Temp 97.1 F Temp Source Temporal Artery Scan Pulse Oximetry (%) 99 Oxygen Delivery Method Room Air Intake Visit Reasons: Not feeling well - see comments below Ultrasonographer Required: No Accompanied by: Self / Same As Patient Allergies No Known Allergies (No Known Allergies*) Allergy (Verified 12/18/24 09:57) Tobacco use date assessed: 09/17/24 Dental Screening Dental Screen Date: 09/17/24 HPI HPI Comments History of Present Illness Details 68 year old female with history of htn, osteoarthritis who is morbidly obese with BMI 35 presenting to the office for follow up. HTN- ortho dc'd triamterene OA- s/p TKA Nov 2024, [facility]. PT twice weekly. Reports that during rehab, she was on an exercise bike and heart rate jumped to 243 and she felt lightheaded with some chest pain. Therapist immediately discontinued session. Obesity- current BMI 35.1. Down 25 pounds since august- box office agent rec diet. was losing more because she wasn't feeling well following surgery. sleep deprived not appetite. now Cooper- stopped triamterene. Will schedule follow up with Dr. Fortunato ALVAREZ- atorvastatin 20mg. Last LDL 71 Concerns: As above Health Maintenance: Left screening mammogram 05/2024, 1 year follow-up advised Last DEXA scan 07/2023 Last colonoscopy 05/2016 with 10 year follow-up advised ROS: General: No fevers, malaise, unintentional weight loss HEENT: No blurred vision, diplopia. No sore throat, nasal congestion, rhinorrhea, sinus pain, ear pain Cardiovascular: No chest pain, palpitations, or leg edema Respiratory: No shortness of breath, wheezing, cough GI: No abdominal pain, nausea, vomiting, diarrhea, constipation, melena, hematochezia : No dysuria, hematuria, increased urinary frequency, decreased urinary output MSK: No myalgia, back pain Neuro: No headaches, weakness, paresthesias Skin: No rashes or lesions EXAM: Constitutional - Awake and Alert, No apparent distress Eyes - PERRL Cardiovascular - S1S2, RRR, No edema Respiratory - Normal lung expansion, Normal respiratory effort, No respiratory distress, CTA bilaterally Extremities - no calf tenderness bilaterally, no swelling Skin - Warm/Dry Neurological - Alert & oriented x3 Psychological - Appropriate affect. See hpi [facility] Medical History (Updated 12/18/24 @ 10:27 by BRITTNY Michael) Osteoarthritis, knee Prediabetes Morbid obesity Thyroid nodule Pneumonia Cough Acute respiratory disease Surgical History (Updated 12/18/24 @ 10:27 by BRITTNY Michael) S/P total knee arthroplasty History of colonoscopy (~05/29/16) Family History Father No problems noted. 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 Lenny Dalton, Crystal Barrios, Truong Noe and colleagues, with an educational pepper from [employer]. Physical exam (Primary Care) Vital Signs: Last Vital Signs Temp 97.1 F 12/18/24 10:01 Pulse 71 12/18/24 10:01 BP 136/72 12/18/24 10:18 Pulse Ox 99 12/18/24 10:01 Oxygen Delivery Method Room Air 12/18/24 10:01 BMI result Body Mass Index 35.1 Tobacco/Smoking Status: Tobacco use Status Tobacco use date assessed 09/17/24 12/18/24 10:03 Patient Tobacco Use Status Never used Tobacco 12/18/24 10:03 e-Cigarette/Vaping Use Never Used 12/18/24 10:03 Thrive Assessment: Date of Thrive Assessment Date Thrive assessed 09/17/24 12/18/24 10:03 Coding Level of Care Code Est Pt Level 4 (03898) Complex EM visit Add On G2211 Diagnoses Obesity, Class III, BMI 40-49.9 (morbid obesity) E66.813 Tachycardia R00.0 Primary hypertension I10 Hypertension type: primary hypertension Hyperlipidemia, unspecified hyperlipidemia type E78.5 Hyperlipidemia type: unspecified Prediabetes R73.03 Exercise-induced angina I20.89 Osteoarthritis, knee M17.9 Assessment & Plan Assessment & Plan (1) Obesity, Class III, BMI 40-49.9 (morbid obesity): Code(s): E66.813 - Obesity, class 3 Category: Medical Plan: Commended on weight loss. Encouraged ongoing efforts. (2) Tachycardia: Code(s): R00.0 - Tachycardia, unspecified Category: Medical Plan: Heart rate elevated to 243, suspect some arrhythmia. Given the tachycardia with coinciding symptoms, check stress test as well as Holter monitor. (3) Hypertension: Code(s): I10 - Essential (primary) hypertension Category: Medical Qualifiers: Hypertension type: primary hypertension Qualified Code(s): I10 - Essential (primary) hypertension Plan: Controlled. Continue off of triamterene-hydrochlorothiazide. We will continue monitoring blood pressure 3, continue working on weight loss efforts. (4) Hyperlipidemia: Code(s): E78.5 - Hyperlipidemia, unspecified Category: Medical Qualifiers: Hyperlipidemia type: unspecified Qualified Code(s): E78.5 - Hyperlipidemia, unspecified Plan: At goal. Repeat lipid panel ordered for next visit. Continue atorvastatin (5) Prediabetes: Code(s): R73.03 - Prediabetes Category: Medical Plan: A1c 5.9%. Continue with weight loss efforts and diabetic diet (6) Exercise-induced angina: Code(s): I20.89 - Other forms of angina pectoris Category: Medical Plan: As above (7) Osteoarthritis, knee: Code(s): M17.9 - Osteoarthritis of knee, unspecified Category: Medical Plan: Continue with physical therapy Plan Follow-up in the office in 4 months with labs to be completed prior to visit. Orders: Orders ECG 3 day holter monitor Today E78.5 - Hyperlipidemia, unspecified, I10 - Essential (primary) hypertension, I20.89 - Other forms of angina pectoris, R00.0 - Tachycardia, unspecified, R73.03 - Prediabetes, Z96.659 - Presence of unspecified artificial knee joint Hemoglobin A1c Today R73.03 - Prediabetes Basic Metabolic Panel Today E66.813 - Obesity, class 3, E78.5 - Hyperlipidemia, unspecified, I10 - Essential (primary) hypertension Complete Blood Count Auto Diff Today E66.813 - Obesity, class 3, E78.5 - Hyperlipidemia, unspecified, I10 - Essential (primary) hypertension CA Dobutamine Stress Echo Today I20.89 - Other forms of angina pectoris, R00.0 - Tachycardia, unspecified
[2024-12-18 10:01] VITALS: BP 150/70; PULSE 71; TEMP 36.2; O2SAT 99; BMI 35.1
[2024-12-18 10:18] VITALS: BP 136/72
== END 2024-12-18 10:28 | disposition home or self-care (01) ==
LOC: HO.HMCHD 09:54
PROVIDERS: PCP Internal Medicine; Visit Provider Physician Assistant
DX: E66.813 Obesity, class 3 (principal); R00.0 Tachycardia, unspecified; I10 Essential (primary) hypertension; E78.5 Hyperlipidemia, unspecified; R73.03 Prediabetes; I20.89 Other forms of angina pectoris; M17.9 Osteoarthritis of knee, unspecified

== ENCOUNTER → 2024-12-18 09:53 | Outpatient (BNVA) | payer MEDICARE, SELFPAY | PROVIDERS: PCP Internal Medicine; Visit Provider Physician Assistant | DX: E66.813 Obesity, class 3 (principal); Z68.35 Body mass index [BMI] 35.0-35.9, adult; R00.0 Tachycardia, unspecified; I10 Essential (primary) hypertension; E78.5 Hyperlipidemia, unspecified; R73.03 Prediabetes; I20.89 Other forms of angina pectoris; M17.9 Osteoarthritis of knee, unspecified; Z79.899 Other long term (current) drug therapy | CPT/HCPCS: 99212 ==

== ENCOUNTER 2024-12-21 13:57 | Outpatient (AMB) | payer MEDICARE, SELFPAY ==
[2024-12-21 14:01] VITALS: BP 148/68; PULSE 86; O2SAT 97; BMI 35.0
--- NOTE | 2024-12-21 14:01 | MHC.OFFVIS ---
Vital Signs 12/21/24 14:01 Height 5 ft 2.5 in Weight 194 lb 7.163 oz BMI 35.0 BP 148/68 H Blood Pressure Location Lt brachial Position Sitting Pulse 86 Pulse Source Pulse Oximeter Pulse Oximetry (%) 97 Oxygen Delivery Method Room Air Intake Visit Reasons: Nontoxic single thyroid nodule Intake Note: New patient present today for Nontoxic single thyroid nodule office visit. 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 CT chest 08/17/2024 showed a 2.3 cm left-sided thyroid nodule. Ultrasound thyroid 09/29/2024, I reviewed the images myself which showed a right midpole 0.4 cm solid hypoechoic TR 4 nodule, right lower pole 0.5 cm mixed cystic solid TR 2 nodule, a left midpole 0.6 cm mixed cystic solid TR 3 nodule, and a dominant left lower pole 2.6 cm solid hypoechoic nodule with punctate echogenic foci. TR 4 category. This meets criteria for FNA. Patient currently denies heat or cold intolerance, diarrhea or constipation, hair loss, palpitation, anxiety,, mood changes, low energy, changes in appearance of eyes or vision changes, tremors, increased diaphoresis or dry skin. ? Losing weight because of dietary changes. Patient denies any difficulty swallowing, pain on swallowing or voice changes or difficulty breathing. rt breast cancer s/p lumpectomy early , s/p radiation , no chemotherapy, s/p anastrozole 5 years. Denies having ever used lithium, amiodarone or biotin supplements. Patient denies any family history of thyroid cancer. Mother had thyroid disease. Physical exam General: sitting comfortably in no acute distress HEENT: normocephalic/atraumatic, Neck: supple, palpable 1 cm left-sided nodule Cardiac: normal heart sounds Pulm: normal breath sounds B/L, no added breath sounds Abd: not distended, no tenderness Extremities: no edema, no signs of myxedema Laboratory Tests 08/27/24 06:40 TSH 1.36 EXAMINATION: US THYROID 09/29/24 HISTORY: E04.1 - Nontoxic single thyroid nodule TECHNIQUE: Real-time grayscale ultrasound imaging was performed and images were reviewed. COMPARISON: Correlation is made with a chest CT dated 08/17/2024. FINDINGS: SIZE: The right thyroid lobe measures 4.5 x 1.2 x 1.8 cm. The left thyroid lobe measures 4.4 x 1.4 x 1.8 cm. The isthmus measures 3 mm. FLOW: Flow to the gland is normal. ECHOGENICITY: The echotexture of the gland is homogeneous. NODULES: Multiple nodules are seen in the thyroid as described below: Nodule #: 1 Location: Midportion of the right thyroid lobe measuring 4 x 2 x 4 mm. Shape: Wider than tall (0 points) Margins: Smooth (0 points) Echotexture: Hypoechoic (2 points) Composition: Solid (2 points) Calcifications: Comet tail (0 points) Total points: 4 TIRADS: TR4: Moderately suspicious. Nodule #: 2 Location: Lower pole of the right thyroid lobe measuring 5 x 3 x 3 mm. Shape: Wider than tall (0 points) Margins: Smooth (0 points) Echotexture: Indeterminate (1 point) Composition: Mixed (1 point) Calcifications: None (0 points) Total points: 2 TIRADS: TR2: Not suspicious Nodule #: 3 Location: Midportion of the left thyroid lobe measuring 6 x 5 x 6 mm. Shape: Wider than tall (0 points) Margins: Smooth (0 points) Echotexture: Indeterminate (1 point) Composition: Mostly solid (2 points) Calcifications: None (0 points) Total points: 3 TIRADS: TR3: Mildly suspicious. Nodule #: 4 Location: Lower pole of the left thyroid lobe measuring 2.6 x 1.8 x 2.4 cm. Shape: Wider than tall (0 points) Margins: Smooth (0 points) Echotexture: Indeterminate (1 point) Composition: Mostly solid (2 points) Calcifications: Punctate calcifications (3 points) Total points: 6 TIRADS: TR4: Moderately suspicious. US/US thyroid IMPRESSION: Moderately suspicious nodule at the lower pole of the left thyroid lobe as described above. According to ACR TI-RADS guidelines below, ultrasound-guided fine-needle aspiration is recommended. EXAMINATION: CT CHEST WITHOUT IV CONTRAST 08/17/24 INDICATION: J98.4 - Other disorders of lung COMPARISON: Correlation is made with PA and lateral views of the chest dated 07/30/2024. TECHNIQUE: Helical CT scan of the chest was performed without intravenous contrast. Coronal and sagittal reformatted images were generated and reviewed. This CT exam was performed with one or more of the following dose reduction techniques: automated exposure control, adjustment of the mA and/or kV according to patient size, use of iterative reconstruction technique. DLP: 189 mGy-cm CHEST: THYROID: There is a 2.3 cm left thyroid nodule. LUNGS: There is a 3 mm nodule at the left lung apex (series 4, image 24). No additional pulmonary nodules are identified. There is linear scarring more inferiorly in the left upper lobe. MEDIASTINUM: There is no mediastinal lymphadenopathy. ANJALI: Evaluation of the hilar regions is limited by lack of intravenous contrast material. CARDIOVASCULATURE: The heart is normal in size. There is no pericardial effusion. The thoracic aorta is normal in caliber. DEGREE OF CORONARY CALCIFICATION: none PLEURA: There is no pleural effusion. No pneumothorax. MAIN AIRWAYS: The mainstem bronchi and proximal branches are patent. AXILLA: There is no axillary lymphadenopathy. BONES AND SOFT TISSUES: There are dystrophic calcifications in the right breast accounting for the appearance of a nodule in the right lower lung zone on prior chest x-ray. There is degenerative disc disease of the spine. UPPER ABDOMEN: The visualized portions of the liver, spleen, and adrenals have an unremarkable unenhanced appearance. CT/CT chest wo IV con IMPRESSION: 1. Dystrophic calcifications in the right breast accounting for the appearance of a nodule in the right lower lung zone on prior chest x-ray. 2. 2.3 cm left thyroid nodule. Correlation with thyroid ultrasound is recommended. 3. Tiny 3 mm left apical pulmonary nodule. Please see Fleischner Society guidelines below. PFSH Medical History (Updated 12/21/24 @ 14:05 by Kanika Painting MD) Multinodular goiter (nontoxic) Osteoarthritis, knee Prediabetes Morbid obesity Thyroid nodule Pneumonia Cough Acute respiratory disease Surgical History (Updated 12/18/24 @ 10:27 by BRITTNY Michael) S/P total knee arthroplasty History of colonoscopy (~05/29/16) Family History Father No problems noted. 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 CT chest 08/17/2024 showed a 2.3 cm left-sided thyroid nodule. Ultrasound thyroid 09/29/2024, I reviewed the images myself which showed a right midpole 0.4 cm solid hypoechoic TR 4 nodule, right lower pole 0.5 cm mixed cystic solid TR 2 nodule, a left midpole 0.6 cm mixed cystic solid TR 3 nodule, and a dominant left lower pole 2.6 cm solid hypoechoic nodule with punctate echogenic foci. TR 4 category. This meets criteria for FNA. I explained that it is common to have thyroid nodules. About 95% of the time these nodules are benign. However if the nodule is > 1 cm in size or suspicious on ultrasound then a fine need aspiration biopsy is recommended. We discussed that a FNAB involves 4-5 passes with a small gauge needle and material obtained is sent off for cytology.If the cytopathology is benign then the nodule will be followed annually with repeat ultrasounds. However if it is suspicious or malignant, we will need to discuss further management. Indeterminate cytology can be further investigated with repeat FNA, genetic testing or empiric lobectomy. Malignant cytology is managed with either lobectomy or total thyroidectomy. We discussed briefly that thyroid cancer is, in most patients, an indolent disease that does not affect mortality. No compressive symptoms. Normal TSH from August 2024. We will arrange for FNA at next available opening and patient will follow up with me in clinic thereafter for results and further decision making. Plan: -scheduled for FNA of the left lower pole 2.6 cm thyroid nodule biopsy and a follow up 2 weeks after to discuss results Plan I spent 45 minutes in reviewing the record, seeing the patient and documenting in the medical record. Orders: Orders US biopsy thyroid Today E04.2 - Nontoxic multinodular goiter Coding Level of Care Code New Pt Level 4 (76124) Diagnoses Multinodular goiter (nontoxic) E04.2 Time Spent (min) 45
== END 2024-12-21 14:29 | disposition home or self-care (01) ==
LOC: HO.ENCR 13:58
PROVIDERS: PCP Internal Medicine; Visit Provider Student in an Organized Health Care Education/Training Program
DX: E04.2 Nontoxic multinodular goiter (principal)
CPT/HCPCS: 99204

== ENCOUNTER → 2024-12-21 13:57 | Outpatient (BNVA) | payer MEDICARE, SELFPAY | PROVIDERS: PCP Internal Medicine; Visit Provider Student in an Organized Health Care Education/Training Program | DX: E04.2 Nontoxic multinodular goiter (principal) | CPT/HCPCS: 99202 ==

== ENCOUNTER 2024-12-23 08:29 | Outpatient (REF) | payer MEDICARE, SELFPAY ==
--- NOTE | 2024-12-23 09:15 | PCN2_ITS ---
Brief Operative Note Date of procedure: 12/23/24 Pre-op diagnosis: left lower pole 2.6 cm thyroid nodule FNA biopsy Post-op diagnosis: same Procedure: THYROID FINE NEEDLE ASPIRATION PROCEDURE NOTE ? PROCEDURE PERFORMED: Ultrasound-guided FNA of thyroid nodule ? OPERATORS: Dr. Kanika Painting ? INDICATION: left lower pole 2.6 cm thyroid nodule; FNA performed to assess for malignancy ? DESCRIPTION OF PROCEDURE: The indications for FNA (to assess for malignancy) were reviewed with the patient in detail. Potential complications (e.g., bleeding, infection, damage to local structures, absence of clear diagnosis after FNA) were reviewed. Alternatives to FNA including conservative observation or surgery were described. The patient understood and agreed to proceed. This was documented by the signing of the written informed consent form. A time-out was performed to confirm the patient's identity and the site of planned FNA. The nodule of interest was identified using ultrasound (14 MHz linear array probe). The site of FNA was then draped in the usual fashion and c arefully cleaned and prepared using alcohol swabs. The skin at the previously-identified site of needle insertion was iced and sprayed with numbing spray. Under ultrasound guidance, 4_ passes were performed using a 1.5-inch, 25-gauge needle, and sample was obtained via capillary action. The needle tip was clearly visualized to be within the nodule at the time of sampling for 4__ of _4_ passes The patient tolerated the procedure well. There were no immediate complications. A small adhesive bandage was applied, and the patient was advised to take acetaminophen (rather than NSAIDs) for any discomfort and to report any signs of inflammation/infection or marked swelling. IMPRESSION: Technically successful ultrasound-guided fine needle aspiration of left lower pole 2.6 cm thyroid nodule. PLAN: The patient was advised that I will provide follow-up regarding the cytology result and any subsequent plans. Kanika Painting MD Endocrinology Attending Condition: stable Disposition: same day
--- OUTSIDE RECORDS SUMMARY | 2024-12-23 09:33 | XMS_ITS | Patient Health Record ---
Author Organization [facility] Address [address] [place] [address] Care Team Providers Care Rn Womens Health Name Role Phone Evelia (RETIRED) Ehsan CORRIGAN Primary Care Provide Lenny Limon Unavailable [phone] Allergies Allergen (clinical drug ingredient) Drug/Non Drug [...] Problem Status W/U Status Risk Notes Problem [id number] Encounter for screening for malignant neoplasm of colon (Z12.11) Active confirmed Problem Screening for malignant neoplasm of rectum (466390434) Encounter for screening for malignant neoplasm of rectum (Z12.12) Active confirmed Problem [id number] Preprocedural examination (Z01.818) Active confirmed Plan Of Treatment Future Test Test Name Order Date COLONOSCOPY 03/07/2016 Insurance Providers Payer Name Payer Address Payer Phone Subscriber Number Group Number Insured Name Patient Relationship to Insured Coverage Start Date Coverage End Date O [employer] PROF[employer] CLAIMS [address] [place] [address] [id number] DOMONIQUE REZA Self - patient is the insured Medical (General) History Medical History History ICD Code Screening colonosocpy 11-1-2 006--hyperplastic polyps, diverticulosis, and internal hemorrhoids Hyperlipidemia Denies [place],DM,CVA,Lung disease,renal dise ase Breast cancer--right--lumpectomy--XRT 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
== END 2024-12-23 08:30 | disposition home or self-care (01) ==
LOC: HO.US 08:29
PROVIDERS: PCP Internal Medicine; Visit Provider Student in an Organized Health Care Education/Training Program
DX: E04.2 Nontoxic multinodular goiter (principal)
CPT/HCPCS: 10005; 88173; 88305

== ENCOUNTER → 2024-12-23 08:29 | Outpatient (BNV) | payer MEDICARE, SELFPAY | PROVIDERS: PCP Internal Medicine; Visit Provider Student in an Organized Health Care Education/Training Program | DX: E04.1 Nontoxic single thyroid nodule (principal) | CPT/HCPCS: 10005 ==

== ENCOUNTER 2024-12-26 09:23 | Outpatient (REF) | payer MEDICARE, SELFPAY ==
--- OUTSIDE RECORDS SUMMARY | 2024-12-26 09:26 | XMS_ITS | Patient Health Record ---
Author Organization [facility] Address [address] [place] [address] Care Team Providers Care Termite Technician Name Role Phone Evelia (RETIRED) Ehsan CORRIGAN Primary Care Provide Lenny Limon Unavailable [phone] Allergies Allergen (clinical drug ingredient) Drug/Non Drug [...] Problem Status W/U Status Risk Notes Problem [id number] Encounter for screening for malignant neoplasm of colon (Z12.11) Active confirmed Problem Screening for malignant neoplasm of rectum (620252035) Encounter for screening for malignant neoplasm of rectum (Z12.12) Active confirmed Problem [id number] Preprocedural examination (Z01.818) Active confirmed Plan Of Treatment Future Test Test Name Order Date COLONOSCOPY 03/07/2016 Insurance Providers Payer Name Payer Address Payer Phone Subscriber Number Group Number Insured Name Patient Relationship to Insured Coverage Start Date Coverage End Date O [employer] PROF[employer]AL CLAIMS [address] [place] [address] [id number] DOMONIQUE REZA Self - patient is the insured Medical (General) History Medical History History ICD Code Screening colonosocpy 11-1-2 006--hyperplastic polyps, diverticulosis, and internal hemorrhoids Hyperlipidemia Denies [place],DM,CVA,Lung disease,renal dise ase Breast cancer--right--lumpectomy--XRT 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
[2024-12-26 11:10] LABS: MANUAL DIFF FLAG NO
[2024-12-26 11:15] LABS: Hematocrit 40.0 % (37.0-47.0); Hemoglobin 12.9 g/dl (12.0-16.0); Imm Gran Abs Auto 0.04 X10*3/uL (0.00-0.03); Imm Gran Pct Auto 0.4 % (0.0-0.4); Lymphocytes Absolute Auto 1.8 X10*3/uL (1.2-4.9); Mean Corpuscular HGB Conc 32.3 g/dl (31.0-35.0); Mean Corpuscular Hemoglobin 28.9 pg (27.0-33.0); Mean Corpuscular Volume 89.7 fL (80.0-98.0); NRBC Abs Auto 0.000 X10*3/uL (0.0-0.012); NRBC Pct Auto 0.0 /100WBC (0.0-0.2); Platelet Count 357 X10*3/uL (160-400); Red Blood Count 4.46 X10*6/uL (4.20-5.50); White Blood Count 9.1 X10*3/uL (4.8-10.8)
[2024-12-26 11:25] LABS: Hemoglobin A1C 122.0082 umol/L; Total Hemoglobin (HGBA1C) 3397.7785 umol/L
[2024-12-26 11:53] LABS: Anion Gap 13 (12-20); Blood Urea Nitrogen 14 mg/dL (9-16); Calcium 9.7 mg/dL (8.4-10.2); Carbon Dioxide 26 mmol/L (22-29); Chloride 107 mmol/L (96-108); Estimated Glomerular Filt Rate > 60; Potassium 4.9 mmol/L (3.3-5.1); Sodium 141 mmol/L (135-145)
== END 2024-12-26 09:24 | disposition home or self-care (01) ==
LOC: HO.HMGCLDS 09:23
PROVIDERS: Visit Provider Physician Assistant
DX: I10 Essential (primary) hypertension (principal); E78.5 Hyperlipidemia, unspecified; E66.813 Obesity, class 3; R73.03 Prediabetes
CPT/HCPCS: 36415; 80048; 83036; 85025

== ENCOUNTER 2024-12-29 08:38 | Outpatient (REF) | payer MEDICARE, SELFPAY ==
--- NOTE | 2024-12-29 08:42 | PFT_ITS ---
Flows: FEV1: 86 % of predicted at 1.78 L FVC: 98 % of predicted at 2.61 L FEV1/FVC: 68 % Bronchodilator response: Absent Volumes: Total lung capacity: 98 % of predicted at 4.64 L Residual volume: 106 % of predicted at 1.98 L Slow vital capacity: 95 % of predicted at 2.66 L Expiratory reserve volume: 55 % of predicted at 0.36 L Diffusion capacity: Normal Impression: Mild obstructive ventilatory defect with no bronchodilator response. Decreased expiratory reserve volume suggests extrathoracic restriction likely secondary to abdominal obesity. MTDD
--- OUTSIDE RECORDS SUMMARY | 2024-12-29 09:40 | XMS_ITS | Patient Health Record ---
Author Organization [facility] Address [address] [place] [address] Care Team Providers Care Scene Painter Name Role Phone Evelia (RETIRED) Ehsan CORRIGAN Primary Care Provide Lenny Limon Unavailable [phone] Allergies Allergen (clinical drug ingredient) Drug/Non Drug [...] Problem Status W/U Status Risk Notes Problem [id number] Encounter for screening for malignant neoplasm of colon (Z12.11) Active confirmed Problem Screening for malignant neoplasm of rectum (332614625) Encounter for screening for malignant neoplasm of rectum (Z12.12) Active confirmed Problem [id number] Preprocedural examination (Z01.818) Active confirmed Plan Of Treatment Future Test Test Name Order Date COLONOSCOPY 03/07/2016 Insurance Providers Payer Name Payer Address Payer Phone Subscriber Number Group Number Insured Name Patient Relationship to Insured Coverage Start Date Coverage End Date O [employer] PROF[employer]AL CLAIMS [address] [place] [address] [id number] DOMONIQUE REZA Self - patient is the insured Medical (General) History Medical History History ICD Code Screening colonosocpy 11-1-2 006--hyperplastic polyps, diverticulosis, and internal hemorrhoids Hyperlipidemia Denies [place],DM,CVA,Lung disease,renal dise ase Breast cancer--right--lumpectomy--XRT 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
== END 2024-12-29 08:39 | disposition home or self-care (01) ==
LOC: HO.RESP 08:38
PROVIDERS: PCP Internal Medicine; Visit Provider Physician Assistant
DX: R06.02 Shortness of breath (principal); G47.10 Hypersomnia, unspecified; E66.01 Morbid (severe) obesity due to excess calories; R06.83 Snoring
CPT/HCPCS: 94010; 94640; 94727; 94729; 95806

== ENCOUNTER → 2024-12-29 08:42 | Outpatient (BNV) | payer MEDICARE, SELFPAY | PROVIDERS: PCP Internal Medicine; Visit Provider Internal Medicine Pulmonary Disease | DX: R06.02 Shortness of breath (principal) | CPT/HCPCS: 94060; 94727; 94729 ==

== ENCOUNTER → 2024-12-29 09:41 | Outpatient (BNV) | payer MEDICARE, SELFPAY | PROVIDERS: PCP Internal Medicine; Visit Provider Psychiatry & Neurology Neurology | DX: R06.83 Snoring (principal) | CPT/HCPCS: 95806 ==

== ENCOUNTER 2025-01-06 13:34 | Outpatient (AMB) | payer MEDICARE, SELFPAY ==
[2025-01-06 13:36] VITALS: BP 144/68; PULSE 64; O2SAT 99; BMI 35.3
--- NOTE | 2025-01-06 13:36 | A.OFFVIS_ITS ---
Vital Signs 3 01/06/25 13:36 Height 5 ft 2.5 in Weight 195 lb 15.855 oz BMI 35.3 BP 144/68 H Blood Pressure Location Lt brachial Position Sitting Pulse 64 Pulse Source Pulse Oximeter Pulse Oximetry (%) 99 Oxygen Delivery Method Room Air Intake Visit Reasons: F/u biopsy FNA Intake Note: Patient present today for biopsy FNA. Inspector Welded Parts Required: No Accompanied by: Self / Same As Patient Allergies No Known Allergies (No Known Allergies*) Allergy (Verified 01/06/25 13:40) HPI Comments Details: 69-year-old female coming in today for follow up of nontoxic multinodular goiter. HPI CT chest 08/17/2024 showed a 2.3 cm left-sided thyroid nodule. Ultrasound thyroid 09/29/2024, I reviewed the images myself which showed a right midpole 0.4 cm solid hypoechoic TR 4 nodule, right lower pole 0.5 cm mixed cystic solid TR 2 nodule, a left midpole 0.6 cm mixed cystic solid TR 3 nodule, and a dominant left lower pole 2.6 cm solid hypoechoic nodule with punctate echogenic foci. TR 4 category. This meets criteria for FNA. Patient currently denies heat or cold intolerance, diarrhea or constipation, hair loss, palpitation, anxiety,, mood changes, low energy, changes in appearance of eyes or vision changes, tremors, increased diaphoresis or dry skin. ? Losing weight because of dietary changes. Patient denies any difficulty swallowing, pain on swallowing or voice changes or difficulty breathing. rt breast cancer s/p lumpectomy early , s/p radiation , no chemotherapy, s/p anastrozole 5 years. Denies having ever used lithium, amiodarone or biotin supplements. Patient denies any family history of thyroid cancer. Mother had thyroid disease. Interval history 12/23/2024: Status post FNA of the left lower pole 2.6 cm nodule which came back as benign, [place] category 2. Physical exam General: sitting comfortably in no acute distress HEENT: normocephalic/atraumatic, Neck: supple, palpable 1 cm left-sided nodule Cardiac: normal heart sounds Pulm: normal breath sounds B/L, no added breath sounds Abd: not distended, no tenderness Extremities: no edema, no signs of myxedema Laboratory Tests 08/27/24 06:40 TSH 1.36 EXAMINATION: US THYROID 09/29/24 HISTORY: E04.1 - Nontoxic single thyroid nodule TECHNIQUE: Real-time grayscale ultrasound imaging was performed and images were reviewed. COMPARISON: Correlation is made with a chest CT dated 08/17/2024. FINDINGS: SIZE: The right thyroid lobe measures 4.5 x 1.2 x 1.8 cm. The left thyroid lobe measures 4.4 x 1.4 x 1.8 cm. The isthmus measures 3 mm. FLOW: Flow to the gland is normal. ECHOGENICITY: The echotexture of the gland is homogeneous. NODULES: Multiple nodules are seen in the thyroid as described below: Nodule #: 1 Location: Midportion of the right thyroid lobe measuring 4 x 2 x 4 mm. Shape: Wider than tall (0 points) Margins: Smooth (0 points) Echotexture: Hypoechoic (2 points) Composition: Solid (2 points) Calcifications: Comet tail (0 points) Total points: 4 TIRADS: TR4: Moderately suspicious. Nodule #: 2 Location: Lower pole of the right thyroid lobe measuring 5 x 3 x 3 mm. Shape: Wider than tall (0 points) Margins: Smooth (0 points) Echotexture: Indeterminate (1 point) Composition: Mixed (1 point) Calcifications: None (0 points) Total points: 2 TIRADS: TR2: Not suspicious Nodule #: 3 Location: Midportion of the left thyroid lobe measuring 6 x 5 x 6 mm. Shape: Wider than tall (0 points) Margins: Smooth (0 points) Echotexture: Indeterminate (1 point) Composition: Mostly solid (2 points) Calcifications: None (0 points) Total points: 3 TIRADS: TR3: Mildly suspicious. Nodule #: 4 Location: Lower pole of the left thyroid lobe measuring 2.6 x 1.8 x 2.4 cm. Shape: Wider than tall (0 points) Margins: Smooth (0 points) Echotexture: Indeterminate (1 point) Composition: Mostly solid (2 points) Calcifications: Punctate calcifications (3 points) Total points: 6 TIRADS: TR4: Moderately suspicious. US/US thyroid IMPRESSION: Moderately suspicious nodule at the lower pole of the left thyroid lobe as described above. According to ACR TI-RADS guidelines below, ultrasound-guided fine-needle aspiration is recommended. EXAMINATION: CT CHEST WITHOUT IV CONTRAST 08/17/24 INDICATION: J98.4 - Other disorders of lung COMPARISON: Correlation is made with PA and lateral views of the chest dated 07/30/2024. TECHNIQUE: Helical CT scan of the chest was performed without intravenous contrast. Coronal and sagittal reformatted images were generated and reviewed. This CT exam was performed with one or more of the following dose reduction techniques: automated exposure control, adjustment of the mA and/or kV according to patient size, use of iterative reconstruction technique. DLP: 189 mGy-cm CHEST: THYROID: There is a 2.3 cm left thyroid nodule. LUNGS: There is a 3 mm nodule at the left lung apex (series 4, image 24). No additional pulmonary nodules are identified. There is linear scarring more inferiorly in the left upper lobe. MEDIASTINUM: There is no mediastinal lymphadenopathy. ANJALI: Evaluation of the hilar regions is limited by lack of intravenous contrast material. CARDIOVASCULATURE: The heart is normal in size. There is no pericardial effusion. The thoracic aorta is normal in caliber. DEGREE OF CORONARY CALCIFICATION: none PLEURA: There is no pleural effusion. No pneumothorax. MAIN AIRWAYS: The mainstem bronchi and proximal branches are patent. AXILLA: There is no axillary lymphadenopathy. BONES AND SOFT TISSUES: There are dystrophic calcifications in the right breast accounting for the appearance of a nodule in the right lower lung zone on prior chest x-ray. There is degenerative disc disease of the spine. UPPER ABDOMEN: The visualized portions of the liver, spleen, and adrenals have an unremarkable unenhanced appearance. CT/CT chest wo IV con IMPRESSION: 1. Dystrophic calcifications in the right breast accounting for the appearance of a nodule in the right lower lung zone on prior chest x-ray. 2. 2.3 cm left thyroid nodule. Correlation with thyroid ultrasound is recommended. 3. Tiny 3 mm left apical pulmonary nodule. Please see Fleischner Society guidelines below. [facility] Medical History (Updated 12/21/24 @ 14:05 by Kanika Painting MD) Multinodular goiter (nontoxic) Osteoarthritis, knee Prediabetes Morbid obesity Thyroid nodule Pneumonia Cough Acute respiratory disease Surgical History S/P total knee arthroplasty History of colonoscopy (~05/29/16) Family History Father No problems noted. 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 Cognitive needs: No Hearing needs: Yes (left hearing aid) Vision needs: Yes (rx glasses) Physical Exam Vital Signs: Last Vital Signs Pulse 64 01/06/25 13:36 BP 144/68 H 01/06/25 13:36 Pulse Ox 99 01/06/25 13:36 Oxygen Delivery Method Room Air 01/06/25 13:36 BMI result Body Mass Index 35.3 Assessment & Plan Assessment & Plan (1) Multinodular goiter (nontoxic): Code(s): E04.2 - Nontoxic multinodular goiter Category: Medical Plan: 69-year-old female with no family history of thyroid cancer with no personal history of head or neck radiation coming in today for follow up of nontoxic multinodular goiter. CT chest 08/17/2024 showed a 2.3 cm left-sided thyroid nodule. Ultrasound thyroid 09/29/2024, I reviewed the images myself which showed a right midpole 0.4 cm solid hypoechoic TR 4 nodule, right lower pole 0.5 cm mixed cystic solid TR 2 nodule, a left midpole 0.6 cm mixed cystic solid TR 3 nodule, and a dominant left lower pole 2.6 cm solid hypoechoic nodule with punctate echogenic foci. TR 4 category. This meets criteria for FNA. 12/23/2024: Status post FNA of the left lower pole 2.6 cm nodule which came back as benign, [place] category 2. No compressive symptoms. Normal TSH from August 2024. Plan: -ordered ultrasound of the thyroid to be done in November 2025 with follow up in December 2025 -ordered TSH and free T4 to be done prior to follow up in December 2025 Plan See above Orders: Orders 2 Thyroid Stimulating Hormone 11/22/25 E04.2 - Nontoxic multinodular goiter Free T4 (Free Thyroxine) 11/22/25 E04.2 - Nontoxic multinodular goiter, E04.9 - Nontoxic goiter, unspecified US thyroid 11/22/25 E04.2 - Nontoxic multinodular goiter, E04.9 - Nontoxic goiter, unspecified Patient Instructions: Please do ultrasound of the thyroid in November 2025, someone we will call you to schedule this, please make sure this is done prior to your next follow up with me in December 2025 Do thyroid blood work a few days prior to your next follow up with me in December 2025, orders are already in the lab Coding Level of Care Code Est Pt Level 3 (64733) Diagnoses Multinodular goiter (nontoxic) E04.2
== END 2025-01-06 13:57 | disposition home or self-care (01) ==
LOC: HO.ENCR 13:35
PROVIDERS: PCP Internal Medicine; Visit Provider Student in an Organized Health Care Education/Training Program
DX: E04.2 Nontoxic multinodular goiter (principal)
CPT/HCPCS: 99213

== ENCOUNTER → 2025-01-06 13:34 | Outpatient (BNVA) | payer MEDICARE, SELFPAY | PROVIDERS: PCP Internal Medicine; Visit Provider Student in an Organized Health Care Education/Training Program | DX: Z71.2 Person consulting for explanation of examination or test findings (principal); E04.2 Nontoxic multinodular goiter; J98.4 Other disorders of lung | CPT/HCPCS: 99212 ==

== ENCOUNTER → 2025-01-07 10:55 | Outpatient (REF) | payer MEDICARE, SELFPAY ==
--- NOTE | 2025-01-07 10:58 | HM_ITS ---
Conclusion: 1. Patient was monitored for total period of 3 days 2. Baseline was normal sinus rhythm with average heart of 74 beats per minute 3. Frequent PACs noted with frequent short bursts of SVT, longest lasting 24 beats at 169 beats per minute 4. No significant pauses noted 5. No patient reported events MTDD
--- NOTE | 2025-01-07 10:58 | CA_ITS ---
Transthoracic Echocardiogram Patient (Last, First, Middle): Noemy Rawls A Gender: Female Date of : 1955 Age: 69 Procedure Date: 01/07/2025 Procedure Type: Transthoracic Echocardiogram Location: OP Height: 157.48 cm Weight: 88.45 kg BSA: 1.89 m2 Heart Rate: 69 bpm BP: 144 / 68 mmHg Dairy Helper: SB Referring MD: Meghan MART Symptoms: I20.89 - Other forms of angina pectoris Study Quality: Adequate w contrast ECG Rhythm: Sinus Conclusions: - The left ventricular systolic function is normal. The calculated ejection fraction is 65% by biplane method. - No obvious valvular pathology seen on this study. Findings Procedure Information Contrast agent, definity, is being given per protocol without apparent complications. Left Ventricle Normal left ventricular cavity size. The left ventricular systolic function is normal. The calculated ejection fraction is 65% by biplane method. There is no evidence of regional wall motion abnormalities. Diastolic function is normal for age. There is mild septal asymmetric hypertrophy. Right Ventricle Normal right ventricular cavity size and systolic function. Atria Both atria are normal in size. Aortic Valve There is a normal trileaflet aortic valve. There is no aortic valve stenosis. There is no aortic valve regurgitation. Mitral Valve The mitral valve appears normal. There is trace mitral valve regurgitation. There is no mitral valve stenosis. Pulmonic Valve The pulmonic valve is likely normal. Tricuspid Valve Normal tricuspid valve structure. There is trace tricuspid valve regurgitation. There is no evidence of pulmonary hypertension. Great Vessels The asc aorta is normal in size. Venous The inferior vena cava is normal in size and collapses greater than 50% with inspiration. Pericardium/Pleural There is no evidence of pericardial effusion. Prior Study Comparison No prior study available for comparison. Recommendations, Care & Conclusions No obvious valvular pathology seen on this study. Measurements 2D Linear Measurements IVSd: 1.12 0.6-0.9/0.6-1.0 cm LVIDd: 4.93 3.9-5.3/4.2-5.9 cm LVIDd Index: 2.61 2.4-3.2/2.2-3.1 cm/m2 LVIDs: 2.62 2.0-3.6 cm LVPWd: 0.90 0.7-1.1 cm LA Diam: 4.10 2.7-3.8/3.0-4.0 cm LAIDs Index: 2.17 1.5-2.3 cm/m2 LV Mass: 223.76 67-162/88-224 g LV Mass Index: 118.39 43-95/49-115 g/m2 LVOT Diam: 1.90 3.0+(-)1.3 cm 2D Systolic Function EF 4C: 64.20 >55% EF 2C: 67.90 >55% EF BiP: 65.10 >55% Mitral Valve MV Pk E: 1.08 MV PK A: 0.78 MV Decel Time: 156.00 E/A: 1.40 E'Lateral: 10.40 E'Medial: 7.94 E/E' Med: 13.60 E/E' Lat: 10.40 PHT: 46.00 MVA PHT: 4.78 Decel Buchanan: 6.94 Aortic Valve AoV Pk Moy: 1.26 AoV Pk Grad: 6.00 PEDRITO: 2.47 LVOT LVOT Pk Moy: 1.07 LVOT Mn Moy: 0.79 LVOT VTI: 0.26 LVOT Pk Grad: 5.00 LVOT Mn Grad: 3.00 LVOT Diam: 1.90 LVOT Area: 2.84 Diastolic Function MV Pk E: 1.08 MV Pk A: 0.78 E/A: 1.40 E'Medial: 7.94 E/E' Med: 13.60 E' Laterial: 10.40 E/E' Lat: 10.40 Right Ventricle TAPSE (mm): 27.50 TVS' Moy: 17.20 Tricuspid Valve TR Pk Moy: 2.37 TR Pk Grad: 22.00 RA Press: 3.00 RVSP: 25.00 Great Vessels Aorta Sinus of Valsalva: 2.70 2.0-3.5 cm Ao Asc: 3.40 2.1-3.4 cm Pulmonary Veins Pulm Vein S/D 0.90 Pulmonary Valve PV Pk Moy: 0.79 Peak PV Grad: 3.00 Updated in Other Vendor System with Status of Final [place] MD electronically signed on 01/09/2025 11:45:28 AM with status of Final
--- OUTSIDE RECORDS SUMMARY | 2025-01-07 12:51 | XMS_ITS | Patient Health Record ---
Author Organization [facility] Address [address] [place] [address] Care Team Providers Care Industrial Fabric Cutter Name Role Phone Evelia (RETIRED) Ehsan CORRIGAN Primary Care Provide Lenny Limon Unavailable [phone] Allergies Allergen (clinical drug ingredient) Drug/Non Drug [...] Problem Status W/U Status Risk Notes Problem [id number] Encounter for screening for malignant neoplasm of colon (Z12.11) Active confirmed Problem Screening for malignant neoplasm of rectum (487524301) Encounter for screening for malignant neoplasm of rectum (Z12.12) Active confirmed Problem [id number] Preprocedural examination (Z01.818) Active confirmed Plan Of Treatment Future Test Test Name Order Date COLONOSCOPY 03/07/2016 Insurance Providers Payer Name Payer Address Payer Phone Subscriber Number Group Number Insured Name Patient Relationship to Insured Coverage Start Date Coverage End Date [employer] PROFESSIONAL CLAIMS [address] [place] [address] [id number] DOMONIQUE REZA Self - patient is the insured Medical (General) History Medical History History ICD Code Screening colonosocpy 11-1-2 006--hyperplastic polyps, diverticulosis, and internal hemorrhoids Hyperlipidemia Denies DC,DM,CVA,Lung disease,renal dise ase Breast cancer--right--lumpectomy--XRT 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
== END ==
LOC: HO.CARD 10:55
PROVIDERS: PCP Internal Medicine; Visit Provider Physician Assistant
DX: I20.89 Other forms of angina pectoris (principal); I10 Essential (primary) hypertension; R00.0 Tachycardia, unspecified; E78.5 Hyperlipidemia, unspecified; R73.03 Prediabetes
CPT/HCPCS: 93242; 93306; Q9957

== ENCOUNTER → 2025-01-07 10:58 | Outpatient (BNV) | payer MEDICARE, SELFPAY | PROVIDERS: PCP Internal Medicine; Visit Provider Internal Medicine | DX: I42.2 Other hypertrophic cardiomyopathy (principal); I20.89 Other forms of angina pectoris | CPT/HCPCS: 93306 ==

== ENCOUNTER 2025-02-04 14:22 | Outpatient (AMB) | payer MEDICARE, SELFPAY ==
[2025-02-04 14:34] VITALS: BMI 34.4
--- NOTE | 2025-02-04 14:34 | A.OFFVIS_ITS ---
VS Expanded 02/04/25 14:34 Height 5 ft 2.5 in Weight 190 lb 14.725 oz BMI 34.4 Intake Visit Reasons: Prediabetes Allergies No Known Allergies (No Known Allergies*) Allergy (Verified 01/06/25 13:40) Nutrition Presentation Details: Pt presents for MNT f/u pre DM Pt reports doing well, gradually working on diet modifications, reducing sugars BS Monitoring Most Recent Diabetes Results: Creatinine, (0.5-1.4) 0.63 mg/dL 12/26/24 BUN, (9-16) 14 mg/dL 12/26/24 Sodium, (135-145) 141 mmol/L 12/26/24 Potassium, (3.3-5.1) 4.9 mmol/L 12/26/24 Chloride, (96-108) 107 mmol/L 12/26/24 Carbon Dioxide, (22-29) 26 mmol/L 12/26/24 Calcium, (8.4-10.2) 9.7 mg/dL 12/26/24 [facility] Medical History (Updated 12/21/24 @ 14:05 by Kanika Painting MD) Multinodular goiter (nontoxic) Osteoarthritis, knee Prediabetes Morbid obesity Thyroid nodule Pneumonia Cough Acute respiratory disease Surgical History S/P total knee arthroplasty History of colonoscopy (~05/29/16) Family History Father No problems noted. 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 Cognitive needs: No Hearing needs: Yes (left hearing aid) Vision needs: Yes (rx glasses) Assessment & Plan Assessment & Plan (1) Prediabetes: Code(s): R73.03 - Prediabetes Category: Medical Plan: Wt: 95 Kg ( 10/30 ), 87 kg (01/30) Est kcal needs as per MSJ: 1700 (40% carb, 30% protein/fat) Est fluid needs as per 25-30 ml/d: 2600 Est prot per day as per 1 g/kg bw: 90 Recommend fiber intake : 8-10 g per day and gradually increase to 25-28 g per day for women and 35-38 g for men or as tolerated Recommend sodium intake per day : less than 2300 mg Educated patient on: ( R = reviewed V = verbalizes understanding N/R = needs review N/A = not applicable * Food sources of carbohydrate, adequate serving sizes and its role in various health conditions: R * Differences between complex carbohydrates a simple carbohydrates, role of fiber in diet: R * Lean protein sources of foods: R * Differences between types of fats and role in diet (mono on saturated fat fatty acids, saturated fatty acids, trans fats): R * Food sources of sodium in salt and healthy modifications for heart health in kidney health: R V R/V * Vitamins and minerals: R V N/R * Healthy plate method concept: R V * Physical activity: Benefits a precaution: R * Hypoglycemia protocol (rule of 15): R V N/R * Dietary prevention of Hyperglycemia: R Patient Instructions: Continue working on reducing pastries/sugar added foods : have a fruit instead for a low calorie and low sodium options Continue working on following healthy plate method Coding Level of Care Code Nutr Indiv Subseq ([id number]) Diagnoses Prediabetes R73.03 Time Spent (min) 30
--- OUTSIDE RECORDS SUMMARY | 2025-02-04 17:25 | XMS_ITS | Patient Health Record ---
Author Organization [facility] Address [address] [place] [address] Care Team Providers Care Integration Assistant Name Role Phone Evelia (RETIRED) Ehsan CORRIGAN Primary Care Provide Lenny Limon Unavailable [phone] Allergies Allergen (clinical drug ingredient) Drug/Non Drug Allergy documented on EMR Reaction Allergy Type Onset Date Status plants/mold (uncoded) Unknown Allergy Active Reason For Referral No Information Medications Medication SIG (Take, Route, Frequency, Duration) Notes Start Date End Date Status Anastrozole 1 MG TAKE 1 TABLET BY KUSUM TH DAILY Oral; Duration: 60 Active Triamterene-HCTZ 37.5-25 MG TAKE 1 CAPSU LE BY MOUTH ONCE A DAY DIRECTED. Oral; Duration: 30 Active Simvastatin 20 MG TAKE 1 TABLET BY KUSUM TH EVERY DAY Oral; Duration: 60 Active Meclizine HCl prn Active Problems Problem Type SNOMED Code ICD Code Onset Dates Problem Status W/U Status Risk Notes Problem Screening for malignant neoplasm of colon (484822107) Encounter for screening for malignant neoplasm of colon (Z12.11) Active confirmed Problem Screening for malignant neoplasm of rectum (464895305) Encounter for screening for malignant neoplasm of rectum (Z12.12) Active confirmed Problem Preprocedural examination ([id number]) Preprocedural examination (Z01.818) Active confirmed Plan Of Treatment Future Test Test Name Order Date COLONOSCOPY 03/07/2016 Insurance Providers Payer Name Payer Address Payer Phone Subscriber Number Group Number Insured Name Patient Relationship to Insured Coverage Start Date [facility]age End Date [facility] [address] [place] [address] [id number] DOMONIQUE REZA Self - patient is the insured Medical (General) History Medical History History ICD Code Screening colonosocpy 02-06- 006--hyperplastic polyps, diverticulosis, and internal hemorrhoids Hyperlipidemia Denies NC,DM,CVA,Lung disease,renal dise ase Breast cancer--right--lumpectomy--XRT 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
== END 2025-02-04 15:01 | disposition home or self-care (01) ==
LOC: HO.ENCR 14:23
PROVIDERS: PCP Internal Medicine; Visit Provider Dietitian, Registered
DX: R73.03 Prediabetes (principal)

== ENCOUNTER → 2025-02-04 14:22 | Outpatient (BNVA) | payer MEDICARE, SELFPAY | PROVIDERS: PCP Internal Medicine; Visit Provider Dietitian, Registered | DX: R73.03 Prediabetes (principal); Z71.3 Dietary counseling and surveillance | CPT/HCPCS: 97803 ==

== ENCOUNTER 2025-02-05 14:59 | Outpatient (AMB) | payer MEDICARE, SELFPAY ==
--- NOTE | 2025-02-05 15:06 | MHC.OFFWIV ---
Intake Vital Signs 02/05/25 15:10 Height 5 ft 2.5 in Weight 194 lb BMI 34.9 BP 122/68 Blood Pressure Location Lt brachial Position Sitting Pulse 78 Pulse Source Pulse Oximeter Temp 97.6 F Temp Source Oral Pulse Oximetry (%) 99 Oxygen Delivery Method Room Air Intake Visit Reasons: EP Blood in urine, slight burning during urination Intake Note: pt presents with burning when voiding and bloody urine x2 days Patient Tobacco Use Status: Never used Tobacco Allergies No Known Allergies (No Known Allergies*) Allergy (Verified 02/05/25 15:15) Do you need a note to return to daycare/school/sports/work: No HPI HPI Comments History of Present Illness Details History - The patient is a 69-year-old female presenting with urinary tract infection symptoms. - The patient reports increased urinary frequency and mild burning sensation during urination. - There is no history of kidney stones, and the patient denies low back pain and fever. - The patient has a history of knee replacement surgery and reports knee pain, which is not currently under active treatment but has seen [facility] for this issue. - The patient uses acetaminophen for knee pain and insomnia, taking one gram every eight hours. - The patient reports difficulty falling asleep and has been using acetaminophen to aid sleep. - The patient denies alcohol consumption and has normal liver function tests. Review of Systems - Genitourinary: Reports increased urinary frequency and mild burning sensation during urination. Denies low back pain and fever. - Musculoskeletal: Reports knee pain. - Neurological: Reports difficulty falling asleep. All systems reviewed and are unremarkable except as noted in HPI Physical Exam General: Cooperative, healthy appearing, comfortable, no acute distress and well developed Orientation: Patient oriented x3 Limitations: No limitations Head: Normal to inspection Ears: Hearing grossly normal bilaterally Face and sinus: Normal facial exam Neck: Normal visual inspection and Yes full ROM Respiratory: Normal respiratory effort and able to speak in complete sentences. Skin: No rashes or lesions noted Neuro: Patient oriented x3 [facility] Medical History (Updated 02/05/25 @ 15:38 by Anayeli Chung PA-C) Multinodular goiter (nontoxic) Osteoarthritis, knee Prediabetes Morbid obesity Thyroid nodule Pneumonia Cough Acute respiratory disease Surgical History S/P total knee arthroplasty History of colonoscopy (~05/29/16) Family History Father No problems noted. 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 Cognitive needs: No Hearing needs: Yes (left hearing aid) Vision needs: Yes (rx glasses) Physical Exam Vital Signs: Last Vital Signs Temp 97.6 F 02/05/25 15:10 Pulse 78 02/05/25 15:10 BP 122/68 02/05/25 15:10 Pulse Ox 99 02/05/25 15:10 Oxygen Delivery Method Room Air 02/05/25 15:10 BMI result Body Mass Index 34.9 Results AMB Urinalysis, Automated UA Leukoctes 70 Owen/uL Last Edit by Candice Gee MA on 02/05/25 15:20 1+ Candice Gee 02/05/25 15:20 UA Nitrite Negative Last Edit by Candice Gee MA on 02/05/25 15:20 UA Urobilinogen 0.2 mg/dL Last Edit by Candice Gee MA on 02/05/25 15:20 UA Protein 30 mg/dL Last Edit by Candice Gee MA on 02/05/25 15:20 1+ Candice Gee 02/05/25 15:20 UA pH 6.0 Last Edit by Candice Gee MA on 02/05/25 15:20 UA Blood 200 Mat/uL Last Edit by Candice Gee MA on 02/05/25 15:20 3+ Candice Gee 02/05/25 15:20 UA Specific Hermon 1.010 Last Edit by Candice Gee MA on 02/05/25 15:20 UA Ketone Negative Last Edit by Candice Gee MA on 02/05/25 15:20 UA Bilirubin 0 mg/dL Last Edit by Candice Gee MA on 02/05/25 15:20 UA Glucose 0 mg/dL Last Edit by Candice Gee MA on 02/05/25 15:20 Results Reviewed Results Reviewed: Laboratory Last Values Urine pH (Auto) 6.0 02/05/25 15:06 Specific Hermon (Auto) 1.010 02/05/25 15:06 Urine Protein (Auto) 30 mg/dL H* 02/05/25 15:06 Glucose (UA)(Auto) 0 mg/dL 02/05/25 15:06 Urine Ketones (Auto) Negative 02/05/25 15:06 Urine Blood (Auto) 200 Mat/uL H* 02/05/25 15:06 Urine Nitrite (Auto) Negative 02/05/25 15:06 Urine Bilirubin (Auto) 0 mg/dL 02/05/25 15:06 Urine Urobilinogen (Auto) 0.2 mg/dL 02/05/25 15:06 Leukocyte Esterase (Auto) 70 Owen/uL H* 02/05/25 15:06 Assessment & Plan Assessment & Plan (1) Knee pain: Code(s): M25.569 - Pain in unspecified knee Qualifiers: Chronicity: acute Laterality: unspecified laterality Qualified Code(s): M25.569 - Pain in unspecified knee Plan: - Discussed the use of acetaminophen for knee pain and insomnia, ensuring liver function is monitored. Liver panel WNL last month. - follow up with [facility] if pain worsens Patient was informed and verbally consented to the use of an ambient scribe for clinic note documentation during this visit. (2) UTI (urinary tract infection): Code(s): N39.0 - Urinary tract infection, site not specified Qualifiers: Urinary tract infection type: acute cystitis Hematuria presence: with hematuria Qualified Code(s): N30.01 - Acute cystitis with hematuria Plan: - UA with leuks and blood and protein. Will treat based on leuks and symptoms. - Initiate antibiotic therapy for urinary tract infection, with instructions to take the medication every 12 hours for five days. - A urine culture has been sent to confirm the infection and ensure the antibiotic is appropriate. - Advise follow-up urinalysis in two to three weeks to ensure resolution of infection and absence of blood and protein in urine. One has been ordered by her PCP already. Orders: Orders AMB Urinalysis Automated Today Z13.9 - Encounter for screening, unspecified Urine Culture Today N39.0 - Urinary tract infection, site not specified Medications: New cefuroxime axetil 500 mg PO Q12H 10 tabs 0RF Coding Level of Care Code Est Pt Level 3 (28668) Diagnoses Acute knee pain, unspecified laterality M25.569 Chronicity: acute Laterality: unspecified laterality Acute cystitis with hematuria N30.01 Urinary tract infection type: acute cystitis Hematuria presence: with hematuria
[2025-02-05 15:10] VITALS: BP 122/68; PULSE 78; TEMP 36.4; O2SAT 99; BMI 34.9
--- OUTSIDE RECORDS SUMMARY | 2025-02-05 15:22 | XMS_ITS | Patient Health Record ---
Author Organization [facility] Address [address] [place] [address] Care Team Providers Care Stopboard Assembler Name Role Phone Evelia (RETIRED) Ehsan CORRIGAN Primary Care Provide r Lenny Duenas Unavailable [phone] Allergies Allergen (clinical drug ingredient) Drug/Non Drug [...] Problem Screening for malignant neoplasm of colon ([id number]) Encounter for screening for malignant neoplasm of colon (Z12.11) Active confirmed Problem Screening for malignant neoplasm of rectum (630474262) Encounter for screening for malignant neoplasm of rectum (Z12.12) Active confirmed Problem Preprocedural examination ([id number]) Preprocedural examination (Z01.818) Active confirmed Plan Of Treatment Future Test Test Name Order Date COLONOSCOPY 03/07/2016 Insurance Providers Payer Name Payer Address Payer Phone Subscriber Number Group Number Insured Name Patient Relationship to Insured Coverage Start Date Coverage End Date [facility] [address] [place] [address] [id number] DOMONIQUE REZA Self - patient is the insured Medical (General) History Medical History History ICD Code Screening colonosocpy 02-06- 006--hyperplastic polyps, diverticulosis, and internal hemorrhoids Hyperlipidemia Denies [place],DM,CVA,Lung disease,renal dise ase Breast cancer--right--lumpectomy--XRT 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
== END 2025-02-05 15:46 | disposition home or self-care (01) ==
PROVIDERS: PCP Internal Medicine; Visit Provider Physician Assistant
DX: M25.569 Pain in unspecified knee (principal); N30.01 Acute cystitis with hematuria; Z13.9 Encounter for screening, unspecified

== ENCOUNTER 2025-02-05 14:59 | Outpatient (REF) | payer MEDICARE, SELFPAY | END 2025-02-05 15:00 | disposition home or self-care (01) | LOC: HO.LAB 14:59 | PROVIDERS: PCP Internal Medicine; Visit Provider Physician Assistant | DX: N30.01 Acute cystitis with hematuria (principal); M25.569 Pain in unspecified knee; Z13.89 Encounter for screening for other disorder | CPT/HCPCS: 81003; 87086; 87088; 87186; 99212 ==

== ENCOUNTER 2025-02-18 08:46 | Outpatient (AMB) | payer MEDICARE, SELFPAY ==
[2025-02-18 08:52] VITALS: BP 128/70; PULSE 70; TEMP 36.5; O2SAT 99; BMI 34.0
--- NOTE | 2025-02-18 08:52 | AM.OFFWIN_ITS ---
Intake Vital Signs 02/18/25 08:52 Height 5 ft 2.5 in Weight 189 lb BMI 34.0 BP 128/70 Blood Pressure Location Rt brachial Position Sitting Pulse 70 Pulse Source Pulse Oximeter Temp 97.7 F Temp Source Oral Pulse Oximetry (%) 99 Oxygen Delivery Method Room Air Intake Visit Reasons: ep pressure in sinus nasal drip dizziness Intake Note: EP complains of dizziness and off balance issue as well post nasal drip started last night. Patient Tobacco Use Status: Never used Tobacco Allergies No Known Allergies (No Known Allergies*) Allergy (Verified 02/18/25 09:04) Medication List - Last Reconciled 02/18/25 by Sisi Owen NP atorvastatin 20 mg PO DAILY cetirizine (Zyrtec) 10 mg PO BID 10 days hydrocortisone 1% 1 appl OR BID meclizine mg PO PRN metoprolol succinate ER 12.5 mg (1/2 x 25 mg) PO DAILY multivitamin 1 tab PO DAILY Do you need a note to return to daycare/school/sports/work: No HPI HPI Comments History of Present Illness Details 69 y/o Female patient [facility] with c/o URI symptoms since last week. Reports sinus congestion and pressure, along with dizziness since last night. 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 Denies fevers, chills, nausea, or vomiting. [facility] Medical History (Updated 02/08/25 @ 14:14 by BRITTNY Michael) Multinodular goiter (nontoxic) Osteoarthritis, knee Prediabetes Morbid obesity Thyroid nodule Pneumonia Cough Acute respiratory disease Surgical History S/P total knee arthroplasty History of colonoscopy (~05/29/16) Family History Father No problems noted. 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 [employer] Cognitive needs: No Hearing needs: Yes (left hearing aid) Vision needs: Yes (rx glasses) Review of Systems Const All systems reviewed & are unremarkable except as noted in HPI and below Physical Exam Vital Signs: Last Vital Signs Temp 97.7 F 02/18/25 08:52 Pulse 70 02/18/25 08:52 BP 128/70 02/18/25 08:52 Pulse Ox 99 02/18/25 08:52 Oxygen Delivery Method Room Air 02/18/25 08:52 BMI result Body Mass Index 34.0 Const General: no acute distress Nutritional Appearance: overweight Orientation/consciousness: patient oriented x3 HEENT Head: Yes normocephalic Ears: external ears normal and TM abnormal with fluid behind the TM bilateral General nose exam: Normal nasal mucous membranes and turbinates present and No nasal discharge present Face and sinus: Yes sinuses nontender Mouth: moist mucous membranes Throat: Yes uvula midline Resp Effort & Inspection: normal respiratory effort Auscultation: clear to auscultation bilaterally, no crackles, no rales, no rhonchi and no wheezes Cardio Heart sounds: S1 normal heart sound present and S2 normal heart sound present Neuro General: patient oriented x3 Assessment & Plan Assessment & Plan (1) Acute respiratory disease: Code(s): J06.9 - Acute upper respiratory infection, unspecified Plan: Viral Upper Respiratory Infection (URI) Sinus congestion/pressure Dizziness likely secondary to sinus congestion. Ordered SARs. Continue supportive care: increase oral fluids, rest Use saline nasal spray or humidifier at night OTC Tylenol or NSAIDs for symptom relief (avoid decongestants if hypertensive) Avoid driving if dizziness persists or worsens. She currently have Meclizine at home. Return if symptoms worsen, persist beyond 10?14 days, or new symptoms develop (fever, SOB, chest pain, purulent nasal discharge) Orders: Orders SARS-CoV2/FLU/RSV Today J06.9 - Acute upper respiratory infection, unspecified Medications: New cetirizine (Zyrtec) 10 mg PO BID 20 tabs 0RF 10 days J06.9 - Acute upper respiratory infection, unspecified Coding Level of Care Code Est Pt Level 4 (40564) Diagnoses Acute respiratory disease J06.9 Time Spent (min) 20
--- OUTSIDE RECORDS SUMMARY | 2025-02-18 09:09 | XMS_ITS | Patient Health Record ---
Author Organization [facility] Address [address] [place] [address] Care Team Providers Care Manager Shift Name Role Phone Evelia (RETIRED) Ehsan CORRIGAN Primary Care Provide Lenny Limon Unavailable [phone] Allergies Allergen (clinical drug ingredient) Drug/Non Drug [...] Problem Screening for malignant neoplasm of colon ([id number]) Encounter for screening for malignant neoplasm of colon (Z12.11) Active confirmed Problem Screening for malignant neoplasm of rectum (876125001) Encounter for screening for malignant neoplasm of rectum (Z12.12) Active confirmed Problem Preprocedural examination ([id number]) Preprocedural examination (Z01.818) Active confirmed Plan Of Treatment Future Test Test Name Order Date COLONOSCOPY 03/07/2016 Insurance Providers Payer Name Payer Address Payer Phone Subscriber Number Group Number Insured Name Patient Relationship to Insured Coverage Start Date Coverage End Date [facility] [address] [place] [address] [id number] DOMONIQUE REZA Self - patient is the insured Medical (General) History Medical History History ICD Code Screening colonosocpy 02-06- 006--hyperplastic polyps, diverticulosis, and internal hemorrhoids Hyperlipidemia Denies [place],DM,CVA,Lung disease,renal dise ase Breast cancer--right--lumpectomy--XRT 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
== END 2025-02-18 09:51 | disposition home or self-care (01) ==
PROVIDERS: PCP Internal Medicine; Visit Provider Nurse Practitioner Family
DX: J06.9 Acute upper respiratory infection, unspecified (principal)

== ENCOUNTER 2025-02-18 08:46 | Outpatient (REF) | payer MEDICARE, SELFPAY ==
[2025-02-18 15:45] LABS: Resp Syncy Virus RNA Qual PCR NEGATIVE (Negative); SARS COV2 PCR INHOUSE NEGATIVE (Negative)
== END 2025-02-18 08:47 | disposition home or self-care (01) ==
LOC: HO.LAB 08:46
PROVIDERS: PCP Internal Medicine; Visit Provider Nurse Practitioner Family
DX: J06.9 Acute upper respiratory infection, unspecified (principal)
CPT/HCPCS: 87637; 99212

== ENCOUNTER 2025-04-05 10:50 | Outpatient (AMB) | payer MEDICARE, SELFPAY ==
[2025-04-05 11:08] VITALS: BMI 34.0
--- NOTE | 2025-04-05 11:08 | A.OFFVIS_ITS ---
Vital Signs 04/05/25 11:08 Height 5 ft 2.5 in Weight 189 lb BMI 34.0 Intake Visit Reasons: Superficial foreign body, Corns/Callosities Intake Note: Noemy is a 69 year old female who presents today as a new patient for an evaluation of her superficial foreign body and corns and callosities. Her last known A1C was 5.4 on 12/26/2024 and she does not check her glucose . Patient reports she has a piece of glass under her callous on bilateral foot. She has tried soaking the foot and removing the glass with a credit card and has found no relief for her symptoms. the glass in her right foot has been there for aver 2 years and the glass in her left foot has been there for over 1 month. Patient also has bilateral bunions and reports this has been an ongoing issue for years she has not tried anything at this time. Allergies No Known Allergies (No Known Allergies*) Allergy (Verified 04/05/25 11:08) HPI Comments Details: The patient is a 69-year-old female with a PMH as seen below presenting for evaluation of a painful calluses and bunions. Patient states she has been experiencing pain to the plantar aspects of the feet bilaterally for years after she stepped on a piece of glass. She experiences pain primarily when ambulating and states it is worsened when walking barefoot. In the past, the patient has attempted to remove the thickened lesion by soaking her foot and using a needle. She also has mildly painful bunions and finds that wearing orthopedic sandals provides support and helps with comfort. She denies any other pedal concerns. [facility] Medical History (Updated 04/06/25 @ 20:23 by Yodit Lerner DPM) Hallux valgus, bilateral Intractable plantar keratosis Pain in both feet Callus Other specified epidermal thickening Multinodular goiter (nontoxic) Osteoarthritis, knee Prediabetes Morbid obesity Thyroid nodule Pneumonia Cough Acute respiratory disease Surgical History S/P total knee arthroplasty History of colonoscopy (~05/29/16) Family History Father No problems noted. 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 - Integumentary: Reports painful thickened lesions to plantar aspects of B/L feet due to previously stepping on glass 2 years ago. All systems reviewed & are unremarkable except as noted in HPI and below Physical Exam Vital Signs: BMI result Body Mass Index 34.0 Extrem Other: B/L LE Focused Physical Exam: Derm: One hyperkeratotic lesion noted to the plantar aspect of the ball of the foot bilaterally. No open lesions abrasions or wounds noted. No purulence, drainage, or bleeding noted. Toenails within normal length. No clinical signs of infection. Vascular: DP/PT pulses palpable capillary refill time less than 3 seconds. Temperature gradient warm to warm. Pedal hair absent. Varicosities noted. Neuro: Protective sensation is grossly intact to light touch. MSK: Pain on palpation to the plantar aspects of the feet in the area of the hyperkeratotic lesions. No crepitus or fluctuance noted. Bunions noted bila terally. Mild pain with 1st MPJ range of motion bilaterally. Range of motion of the hindfoot and ankles within normal limits. Hammertoe deformities noted to lesser digits. Office Procedures AMB Debridement/Avulsion Podia Details: Debrided hyperkeratotic lesions to bilateral feet using a 15. Blade without incidents. 54415-Lsjkqinopaf of Callus (2-4) Procedure code (CPT) selection complete Results Reviewed Results Reviewed: Ordered bilateral foot weightbearing three-view x-rays to be performed prior to next visit. Assessment & Plan Assessment & Plan (1) Foreign body in foot: Code(s): S90.859A - Superficial foreign body, unspecified foot, initial encounter Category: Medical Qualifiers: Encounter type: initial encounter Laterality: unspecified laterality Qualified Code(s): S90.859A - Superficial foreign body, unspecified foot, initial encounter (2) Other specified epidermal thickening: Code(s): L85.8 - Other specified epidermal thickening Category: Medical (3) Intractable plantar keratosis: Code(s): L84 - Corns and callosities Category: Medical (4) Pain in both feet: Code(s): M79.671 - Pain in right foot; M79.672 - Pain in left foot Category: Medical (5) Callus: Code(s): L84 - Corns and callosities Category: Medical (6) Hallux valgus, bilateral: Code(s): M20.11 - Hallux valgus (acquired), right foot; M20.12 - Hallux valgus (acquired) , left foot Category: Medical Plan Patient was informed and verbally consented to the use of an ambient scribe for clinic note documentation during this visit. I explained to the patient that her pain is likely from the thick core of the callus, which formed as a healing response after she stepped on glass years ago. We discussed the plan, which includes an X-ray to definitively rule out a retained foreign body, evaluate the bunions, and debridement of the hyperkeratotic lesion. For her asymptomatic bunions, I recommended continuing with supportive footwear and using a bunion sleeve. I advised applying Vaseline or thick emollient to the debrided area to slow callus recurrence and scheduled a follow-up in one month for re-evaluation. - Debrided the hyperkeratotic lesions without incidents. - An order was placed for an X-ray of the feet to be performed prior to the next visit. - The patient was advised to apply a thick cream, such as Vaseline, to the callused areas to slow regrowth. - Recommended continued use of supportive shoes and to use a bunion sleeve. Advised patient to avoid barefoot walking and avoid tight-fitting shoes. RTC in 1 month. Orders: Orders AMB Debridement/Avulsion Podiatry 04/05/25 L84 - Corns and callosities, L85.8 - Other specified epidermal thickening, M79.671 - Pain in right foot, M79.672 - Pain in left foot XR Foot [place] 3V 04/05/25 S90.859A - Superficial foreign body, unspecified foot, initial encounter Coding Level of Care Code New Pt Level 4 (17870) Diagnoses Foreign body in foot, unspecified laterality, initial encounter S90.096I Encounter type: initial encounter Laterality: unspecified laterality Other specified epidermal thickening L85.8 Intractable plantar keratosis L84 Pain in both feet M79.671; M79.672 Callus L84 Hallux valgus, bilateral M20.11; M20.12 CPT Codes Skin Debridement - CPT: 73133-Kroinfuucft of Callus (2-4) ([id number]) Time Spent (min) 50 Comment 5 mins for the procedure
--- OUTSIDE RECORDS SUMMARY | 2025-04-05 12:28 | XMS_ITS | Patient Health Record ---
Author Organization [facility] Address [address] [place] [address] Care Team Providers Care Community Living Specialist Name Role Phone Evelia (RETIRED) Ehsan CORRIGAN Primary Care Provide Lenny Limon Unavailable [phone] Allergies Allergen (clinical drug ingredient) Drug/Non Drug Allergy documented on EMR Reaction Allergy Type Onset Date Status plants/mold (uncoded) Unknown Allergy Active Reason For Referral No Information Medications Medication SIG (Take, Route, Frequency, Duration) Notes Start Date End Date Status Anastrozole 1 MG Tablet TAKE 1 TABLET BY MOUTH DAILY Oral; Duration: 60 Active Triamterene-HCTZ 37.5-25 MG Capsule TAKE 1 CAPSULE BY MOUTH ONCE A DAY DIRECTED. 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 Section Notes: Nonsmoker; no sig alcohol Problems Problem Type SNOMED Code ICD Code Onset Dates Problem Status W/U Status Risk Notes Problem Screening for malignant neoplasm of colon (847179490) Encounter for screening for malignant neoplasm of colon (Z12.11) Active confirmed Problem Screening for malignant neoplasm of rectum (262849440) Encounter for screening for malignant neoplasm of rectum (Z12.12) Active confirmed Problem Preprocedural examination (846392059508223) Preprocedural examination (Z01.818) Active confirmed Plan Of Treatment Future Test Test Name Order Date COLONOSCOPY 03/07/2016 Insurance Providers Payer Name Payer Address Payer Phone Subscriber Number Group Number Insured Name Patient Relationship to Insured Coverage Start Date Coverage End Date [facility] [address] [place] [address] [id number] 500 DOMONIQUE REZA Self - patient is the insured Medical (General) History Medical History History ICD Code Screening colonosocpy 006--hyperplastic polyps, diverticulosis, and internal hemorrhoids Hyperlipidemia Denies [place],DM,CVA,Lung disease,renal dise ase Breast cancer--right--lumpectomy--XRT 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
== END 2025-04-05 11:31 | disposition home or self-care (01) ==
PROVIDERS: PCP Internal Medicine; Visit Provider Student in an Organized Health Care Education/Training Program
DX: S90.859A Superficial foreign body, unspecified foot, initial encounter (principal); L85.8 Other specified epidermal thickening; L84 Corns and callosities; M79.671 Pain in right foot; M79.672 Pain in left foot; M20.11 Hallux valgus (acquired), right foot; M20.12 Hallux valgus (acquired), left foot; M17.10 Unilateral primary osteoarthritis, unspecified knee
CPT/HCPCS: 11056; 99204

== ENCOUNTER → 2025-04-05 10:50 | Outpatient (BNVA) | payer MEDICARE, SELFPAY | PROVIDERS: PCP Internal Medicine; Visit Provider Student in an Organized Health Care Education/Training Program | DX: S90.859A Superficial foreign body, unspecified foot, initial encounter (principal); R73.03 Prediabetes; L85.8 Other specified epidermal thickening; L84 Corns and callosities; M20.11 Hallux valgus (acquired), right foot; M20.12 Hallux valgus (acquired), left foot; M79.671 Pain in right foot; M79.672 Pain in left foot | CPT/HCPCS: 11056; 99202 ==